=== PATIENT | female | born 1935 | race Caucasian/White ===

== ENCOUNTER → 2017-03-18 | Outpatient (CLI) | payer MEDICARE, BC ==
[2015-06-13 14:39] VITALS: BP 127/68
[~2017-03-18] MED LIST: ACET325T9 PO; ALBU2.5V5 NEB; ALPR0.254 PO; ALPR0.5T6 PO; AMLO5TAB2; ARFO15VI NEB; ASPI-630 PO; ATOR20TA PO; ATOR20TA58; BENA20TA2 PO; BUDE10.22 IH; DIPH25CA58 PO; DOCU-109 PO; FLUO15CR; FORM12CA IH; FURO40TA4; GUAR1PAC2 PO; HYDR12.53 PO; HYDR25CA PO; IOHEXOL 300 MG/ML 75 ML VIAL. IV ONE; LORA10TA3 PO; MELA3TAB2 PO; MULT-245 PO; NAPR220C4 PO; OXYB5TAB7 PO; POLY17PO5 PO; PRED5TAB PO; ZOLP10TA PO; ZOLP10TA4 PO; ZOLP5TAB PO
--- NOTE | 2017-03-18 09:08 | RAD ---
Examination: CT angiogram chest. History: History of elevated d-dimer Comparison: 07/29/2014 Technique: Axial CT angiographic images of the chest were performed with IV contrast. Coronal sagittal 3-D MIP reformats are performed. PQRS Compliance Statement: One or more of the following individualized dose reduction techniques were utilized for this examination: 1. Automated exposure control 2. Adjustment of the mA and/or kV according to patient size 3. Use of iterative reconstruction technique Findings: 2.6 cm hypodensity identified in the right lobe of thyroid gland grossly similar to prior exam. Mild cardiomegaly. Diffuse coronary artery calcifications. The caliber of the aorta grossly appears unremarkable. There is no evidence of filling defect identified in the main pulmonary arterial trunk and right and left main pulmonary arteries. No radiologically significant mediastinal lymphadenopathy identified. Mild atelectasis or scarring changes identified in the right middle lobe of the lung. No evidence of pleural effusion or pneumothorax. Multiple calcified granulomas identified in the liver and spleen. Moderate compression changes identified in the T11 vertebral body and mild compression change is identified in the T7 vertebral body are new compared to prior exam. Impression: 1. No evidence of acute pulmonary embolism. 2. New compression changes of T11, T7 vertebral bodies compared to prior exam of 2014.. Correlate for point tenderness. 3. 2.6 cm hypodensity identified in the right lobe of the thyroid gland grossly similar to prior exam 2014.
== END | disposition home or self-care (01) ==
LOC: CT 08:21
PROVIDERS: ATTEND Family Medicine
DX: I51.7 Cardiomegaly (principal); I25.10 Atherosclerotic heart disease of native coronary artery without angina pectoris; R79.1 Abnormal coagulation profile; K75.3 Granulomatous hepatitis, not elsewhere classified; Z87.891 Personal history of nicotine dependence
CPT/HCPCS: 71275; Q9967

== ENCOUNTER → 2018-01-04 | Outpatient (CLI) | payer MEDICARE, BC ==
[~2018-01-04] MED LIST changes: -AMLO5TAB2; +AMLO5TAB7; -BENA20TA2 PO; +BENA20TA4 PO; -IOHEXOL 300 MG/ML 75 ML VIAL. IV ONE
[2018-01-04 10:15] VITALS: BP 152/76
--- NOTE | 2018-01-04 10:16 | NUR ---
NSG NOTE; OUT PT BLADDER SCAN PT HERE TO ROOM 111 AT 0900 VIA AMB WITH CANE ACCOMP BY SELF VS: 97.9 ORAL; HR 69; RESP 18; O2 SAT 94% ON ROOM AIR; BP 152/76 PT STATES SHE NEEDS TO URINATE BLADDER SCAN SHOWS 143 ML URINE IN THE BLADDER PT VOIDED 75 ML URINE. BRIEF WAS DRY AT THIS TIME BLADDER SCAN SHOW 55 ML RESIDUAL URINE AFTER VOID. DR JOYA HERE AND INFORMED OF THESE RESULTS BY THE PATIENT AND ME I WILL FAX A COPY OF THIS NOTE TO DR JOYA'S OFFICE PT DISCHARGED HOME AT 0945
== END | disposition home or self-care (01) ==
LOC: OPINF 09:00
PROVIDERS: ATTEND Family Medicine
DX: N39.0 Urinary tract infection, site not specified (principal); Z87.891 Personal history of nicotine dependence
CPT/HCPCS: 51798

== ENCOUNTER → 2018-04-23 | Outpatient (CLI) | payer MEDICARE, BC ==
[2018-01-04 10:15] VITALS: BP 152/76
[~2018-04-23] MED LIST changes: -HYDR12.53 PO; +HYDR12.572 PO
--- NOTE | 2018-04-23 12:46 | RAD ---
EXAM: Maxillofacial bone CT without contrast. HISTORY: Sinusitis. TECHNIQUE: Computed tomographic images of the maximal facial bones were obtained without contrast. *One or more of the following individualized dose reduction techniques were utilized for this examination: 1. Automated exposure control. 2. Adjustment of the mA and/or kV according to patient size. 3. Use of iterative reconstruction technique. COMPARISON: None. FINDINGS: The paranasal sinuses are clear. The ostiomeatal units are patent. There is no significant nasal septal deviation. There is no sinus wall thickening or erosion. There is evidence of bilateral lens surgery. The mastoid air cells are clear. There is degenerative change involving the left mandibular condyle due to temporomandibular joint osteoarthritis. The visualized portions the brain demonstrate no mass effect or midline shift. There is no hydrocephalus. There is mild age-appropriate cerebral volume loss. No suspicious calvarial lesion is seen. IMPRESSION: 1. No evidence of acute or chronic sinusitis. 2. Left temporomandibular joint osteoarthritis. Electronically signed by: Addis Morrison MD (04/23/2018 12:42 PM) [place] [id number]
== END | disposition home or self-care (01) ==
LOC: CT 10:57
PROVIDERS: ATTEND Family Medicine
DX: J32.9 Chronic sinusitis, unspecified (principal); M26.69 Other specified disorders of temporomandibular joint
CPT/HCPCS: 70486

== ENCOUNTER 2018-06-11 17:45 | Inpatient (IN) | payer MEDICARE, BC ==
[~2018-06-11] VITALS: Ht 167.6 cm; Wt 66.3 kg
[~2018-06-11 17:45] MED LIST changes: +AMLO5TAB10; -AMLO5TAB7; -FLUO15CR; +FLUO15CR TOP
--- NOTE | 2018-06-11 17:48 | ED.ADGEN ---
Past History Past Medical History: Arthritis, Asthma, Bronchitis, CAD, COPD, Hypertension, Other Past Surgical History: Appendectomy, Hysterectomy, Knee Replacement, Pacemaker , Tonsillectomy, Other Alcohol Use: Occasionally Drug Use: None Adult General Chief Complaint Chief Complaint "I was at Dr. Beltran office...and they sent me here to get checked out.." HPI HPI Patient is a 83 year old female who presents with above hx and complaints of increased dyspea. Pt. has hx of COPD and CADZ with pacer. Has had previous TIA doesn't patient history of hypertension, high cholesterol, colon polyps, and Asthma. Pt. denies any productive cough but complains of increased dyspnea with ambulation. Patient does have an uncomfortable feeling in her lungs. Patient denies any change in meds. No history of travel or specific ill contacts. No history immunosuppression. Patient normally follows Dr. Beltran. Review of Systems Review of Systems Constitutional: Denies fever or chills [] Eyes: Denies change in visual acuity, redness, or eye pain [] HENT: Denies nasal congestion or sore throat [] Respiratory: Complaints of dyspnea and shortness of breath [] Cardiovascular: No additional information not addressed in HPI [] GI: Denies abdominal pain, nausea, vomiting, bloody stools or diarrhea [] : Denies dysuria or hematuria [] Musculoskeletal: Denies back pain or joint pain [] Integument: Denies rash or skin lesions [] Neurologic: Denies headache, focal weakness or sensory changes [] Endocrine: Denies polyuria or polydipsia [] All other systems were reviewed and found to be within normal limits, except as documented in this note. Family History Family History Noncontributory Current Medications Current Medications See nursing for home meds Allergies Allergies Allergies Coded Allergies Type Severity Reaction Last Updated Verified Penicillins Allergy Intermediate Itching 07/29/14 Yes Sulfa (Sulfonamide Antibiotics) Allergy Intermediate Unknown 07/29/14 Yes codeine Allergy Intermediate UNK 07/29/14 Yes diclofenac sodium Allergy Intermediate UNK 07/29/14 Yes latex Allergy Intermediate Rash 12/18/13 Yes Physical Exam Physical Exam Constitutional: Moderately acute distress, non-toxic appearance. [] HENT: Normocephalic, atraumatic, bilateral external ears normal, oropharynx moist, no oral exudates, nose normal. [] Eyes: PERRLA, EOMI, conjunctiva normal, no discharge. [] Neck: Normal range of motion, no tenderness, supple, no stridor. [] Cardiovascular:Heart rate regular rhythm, no murmur []PMI to Lt. Lungs & Thorax: Bilateral breath sounds clear apexes with scattered wheezes on auscultation []pacer. Scar Abdomen: Bowel sounds normal, soft, no tenderness, no masses, no pulsatile masses. [] Old surgery scars. Skin: Warm, dry, no erythema, no rash. [] Back: No tenderness, no CVA tenderness. [] Extremities: No tenderness, no cyanosis, no clubbing, ROM intact, no edema. [] No cording appreciated Neurologic: Alert and oriented X 3, normal motor function, normal sensory function, no focal deficits noted. [] Psychologic: Affect , judgement normal, mood normal. [] EKG EKG My interpretation of EKG shows a sinus rhythm at 69 bpm. There is a right axis deviation and right bundle branch block. No significant changes from EKG completed and Dr. Beltran's office at 1545 hrs.[] Radiology/Procedures Radiology/Procedures My interpretation of chest x-ray shows[] bilateral basal infiltrate/ atelectasis. Cardiomegaly. Does have a prominent pulmonary artery. CT of chest and US pending at time of admission. Course & Med Decision Making Course & Med Decision Making Pertinent Labs and Imaging studies reviewed. (See chart for details) Discussed presentation, testing and treatment plan with Dr. Beltran. Will admit for further evaluation and treatment. [] Final Impression Final Impression 1. Dyspnea 2. Elevated d-dimer- Hx. Prior Elevated D-dimers 3. History of COPD/bronchitis 4. History coronary artery disease with pacer[] 5 . Bilateral basilar interstitial changes 6. Pul. Hypertension?- Dragon Disclaimer Dragon Disclaimer This electronic medical record was generated, in whole or in part, using a voice recognition dictation system. Dragon Disclaimer This chart was dictated in whole or in part using Voice Recognition software in a busy, high-work load, and often noisy Emergency Department environment. It may contain unintended and wholly unrecognized errors or omissions. Discharge Summary Visit Information Final Diagnosis Problems Medical Problems: (1) Dyspnea Status: Acute Brief Hospital Course Allergies Allergies Coded Allergies Type Severity Reaction Last Updated Verified Penicillins Allergy Intermediate Itching 07/29/14 Yes Sulfa (Sulfonamide Antibiotics) Allergy Intermediate Unknown 07/29/14 Yes codeine Allergy Intermediate UNK 07/29/14 Yes diclofenac sodium Allergy Intermediate UNK 07/29/14 Yes latex Allergy Intermediate Rash 12/18/13 Yes Vital Signs Vital Signs Date Time Temp Pulse Resp B/P (MAP) Pulse Ox O2 Delivery O2 Flow Rate FiO2 06/11/18 22:23 97.8 95 18 109/71 (84) 95 Room Air Lab Results Laboratory Tests Test 06/11/18 18:15 06/11/18 18:55 White Blood Count 6.5 x10^3/uL (4.0-11.0) Red Blood Count 4.46 x10^6/uL (3.50-5.40) Hemoglobin 13.9 g/dL (12.0-15.5) Hematocrit 41.4 % (36.0-47.0) Mean Corpuscular Volume 93 fL (79-100) Mean Corpuscular Hemoglobin 31 pg (25-35) Mean Corpuscular Hemoglobin Concent 34 g/dL (31-37) Red Cell Distribution Width 14.2 % (11.5-14.5) Platelet Count 203 x10^3/uL (140-400) Neutrophils (%) (Auto) 67 % (31-73) Lymphocytes (%) (Auto) 19 % (24-48) Monocytes (%) (Auto) 10 % (0-9) Eosinophils (%) (Auto) 4 % (0-3) Basophils (%) (Auto) 1 % (0-3) Neutrophils # (Auto) 4.3 x10^3uL (1.8-7.7) Lymphocytes # (Auto) 1.2 x10^3/uL (1.0-4.8) Monocytes # (Auto) 0.6 x10^3/uL (0.0-1.1) Eosinophils # (Auto) 0.2 x10^3/uL (0.0-0.7) Basophils # (Auto) 0.0 x10^3/uL (0.0-0.2) Prothrombin Time 9.9 SEC (9.4-11.4) Prothromb Time International Ratio 1.0 (0.9-1.1) Activated Partial Thromboplast Time 26 SEC (23-33) D-Dimer (Lin) 1.25 mg/L (0.00-0.50) Sodium Level 140 mmol/L (136-145) Potassium Level 4.0 mmol/L (3.5-5.1) Chloride Level 102 mmol/L (98-107) Carbon Dioxide Level 32 mmol/L (21-32) Anion Gap 6 (6-14) Blood Urea Nitrogen 23 mg/dL (7-20) Creatinine 0.7 mg/dL (0.6-1.0) Estimated GFR (Cockcroft-Gault) 79.7 Glucose Level 77 mg/dL (70-99) Calcium Level 10.2 mg/dL (8.5-10.1) Magnesium Level 2.3 mg/dL (1.8-2.4) Total Bilirubin 0.4 mg/dL (0.2-1.0) Direct Bilirubin 0.1 mg/dL (0.0-0.2) Aspartate Amino Transf (AST/SGOT) 32 U/L (15-37) Alanine Aminotransferase (ALT/SGPT) 30 U/L (14-59) Alkaline Phosphatase 106 U/L (46-116) Creatine Kinase 161 U/L (26-192) Creatine Kinase MB (Mass) 4.5 ng/mL (0.0-3.6) Creatine Kinase MB Relative Index 2.8 % (0-4) Troponin I Quantitative 0.021 ng/mL (0-0.055) LG-Dlj-G-Type Natriuretic Peptide 276 pg/mL (0-449) Total Protein 7.5 g/dL (6.4-8.2) Albumin 4.0 g/dL (3.4-5.0) Lipase 244 U/L (73-393) Urine Collection Type Unknown Urine Color Yellow Urine Clarity Clear Urine pH 7.5 Urine Specific [place] 1.010 Urine Protein Neg (NEG-TRACE) Urine Glucose (UA) Neg mg/dL (NEG) Urine Ketones (Stick) Neg mg/dL (NEG) Urine Blood Neg (NEG) Urine Nitrite Neg (NEG) Urine Bilirubin Neg (NEG) Urine Urobilinogen Dipstick 0.2 mg/dL (0.2 mg/dL) Urine Leukocyte Esterase Neg (NEG) Urine RBC 0 /HPF (0-2) Urine WBC 0 /HPF (0-4) Urine Squamous Epithelial Cells Occ /LPF Urine Bacteria 0 /HPF (0-FEW) Brief Hospital Course Ms. Del Toro is a 83 old female who presented with dyspnea. Admitted Dr. Beltran Discharge Information Condition at Discharge: Improved, Stable Dischare Medications Current Medications Aspirin (Children'S Aspirin) 324 mg 1X ONCE PO Last administered on 06/11/18at 18:36; Start 06/11/18 at 18:00; Stop 06/11/18 at 18:01; Status DC Lactated Ringer's 1,000 ml @ 100 mls/hr Q10H IV Last administered on 06/11/18at 18:36; Start 06/11/18 at 18:00; Stop 06/12/18 at 03:59 Iohexol (Omnipaque 350 Mg/ml) 100 ml 1X ONCE IV Last administered on 06/11/18at 23:42; Start 06/11/18 at 20:30; Stop 06/11/18 at 20:31; Status DC Enoxaparin Sodium (Lovenox 60mg Syringe) 60 mg 1X ONCE SQ Last administered on 06/11/18at 20:58; Start 06/11/18 at 20:45; Stop 06/11/18 at 21:05; Status DC Ondansetron HCl (Zofran) 4 mg PRN Q4HRS PRN IV NAUSEA/VOMITING; Start 06/11/18 at 20:45; Stop 06/12/18 at 20:44 Albuterol/ Ipratropium (Duoneb) 3 ml RTQID NEB ; Start 06/12/18 at 08:00; Stop at 07:59 Methylprednisolone Sodium Succinate (SOLU-Medrol 125MG VIAL) 125 mg DAILY IV ; Start 06/12/18 at 09:00 Azithromycin (Zithromax) 500 mg 1X ONCE PO Last administered on 06/11/18at 21:04 ; Start 06/11/18 at 20:45; Stop 06/11/18 at 20:57; Status DC Azithromycin (Zithromax) 250 mg DAILY PO ; Start 06/12/18 at 09:00 Zolpidem Tartrate (Ambien) 5 mg QHS PO Last administered on 06/12/18at 00:02; Start 06/11/18 at 23:30 Zolpidem Tartrate (Ambien) 5 mg PRN QHS PRN PO INSOMNIA IF REPEAT NEEDED; Start 06/11/18 at 23:30 Active Scripts Active Reported Zolpidem Tartrate 10 Mg Tablet 10 Mg PO QHS Brovana (Arformoterol Tartrate) 15 Mcg/2 Ml Vial.neb 15 Mcg IH BID Lipitor (Atorvastatin Calcium) 20 Mg Tablet 20 Mg PO QHS indication: high lipids Last dose: last night next dose: tonight Alprazolam 0.5 Mg Tablet 1 Tab PO WEEKLY PRN Indication: anxiety Last dose: unknown next dose: anytime Melatonin 3 Mg Tablet 5 Mg PO PRN QHS PRN Indication: insomnia Last dose: unknown next dose: anytime at bedtime Foradil (Formoterol Fumarate) 12 Mcg Cap.w.dev 12 Mcg IH BID Indication: COPD Last dose: today at 9AM Next dose: tonight at bedtime Benadryl (Diphenhydramine Hcl) 25 Mg Capsule 1 Cap PO PRN QHS PRN Indication: allergies Next dose: anytime as needed Hydrochlorothiazide Capsule (Hydrochlorothiazide) 12.5 Mg Capsule 1 Cap PO DAILY Indication: blood pressure Last dose: this morning next dose: tomorrow at 9AM Miralax (Polyethylene Glycol 3350) 17 Gm Powd.pack 1 Packet PO DAILY Indication: constipation Last dose: today next dose: tomorrow Benefiber (Guar Gum) 1 Each Packet 1 Each PO PRN DAILY PRN Indication: stool softner Last dose: unknown next dose: anytime as needed for constipation Aspirin 81 Mg Tab.chew 2 Tab PO DAILY Indication: blood thinner Last dose: today at 9 Next dose: tomorrow at 9 Benazepril Hcl 20 Mg Tablet 0.5 Tab PO DAILY Indication: HTN last dose: today next dose: tomorrow in AM Symbicort 80-4.5 Mcg Inhaler (Budesonide/Formoterol Fumarate) 10.2 Gm Hfa.aer.ad 2 Puff IH PRN BID PRN Indication: COPD Last dose: unknown Next dose: anytime as needed Tylenol (Acetaminophen) 325 Mg Tablet 650 Mg PO Q6HRS PRN last dose this morning next dose as needed Next dose: anytime Multi Vitamin Daily (Multivitamin) 1 Each Tablet 1 Each PO Indication: vitamin Next dose: tomorrow at 9AM Vistaril (Hydroxyzine Pamoate) 25 Mg Capsule 1 Cap PO PRN TID PRN Indication: rash Next dose: anytime as needed Loratadine 10 Mg Tablet 1 Tab PO PRN DAILY PRN Indication: allergies Last dose: today Next dose: tomorrow at 9AM Fluocinonide 15 Gm Cream..g. PRN 3-4XDAILY PRN Indication: itching Next dose: anytime. Amlodipine Besylate 5 Mg Tablet DAILY Indication: blood pressure Last dose: this morning next dose tomorrow morning YUSEF RODRIGUEZ MD Jun 11, 2018 17:48
[2018-06-11] MEDS ORDERED: IV RINGERS SOLUTION,LACTATED 1,000 ML IV SCH (18:00)
[2018-06-11] MEDS ORDERED: ASPIRIN 81 MG TAB.CHEW PO ONE (18:00)
[2018-06-11 18:36] LABS: BASO % 1 % (0-3); EOS # 0.2 x10^3/uL (0.0-0.7); EOS % 4 % (0-3); HEMATOCRIT 41.4 % (36.0-47.0); HEMOGLOBIN 13.9 g/dL (12.0-15.5); LYMPH # 1.2 x10^3/uL (1.0-4.8); LYMPH % 19 % (24-48); MEAN CORPUSCULAR HEMOGLOBIN 31 pg (25-35); MEAN CORPUSCULAR HGB CONC 34 g/dL (31-37); MEAN CORPUSCULAR VOLUME 93 fL (79-100); MONO # 0.6 x10^3/uL (0.0-1.1); MONO % 10 % (0-9); NEUT # 4.3 x10^3uL (1.8-7.7); NEUT % 67 % (31-73); PLATELET COUNT 203 x10^3/uL (140-400); RED BLOOD COUNT 4.46 x10^6/uL (3.50-5.40); RED CELL DISTRIBUTION WIDTH 14.2 % (11.5-14.5); WHITE BLOOD COUNT 6.5 x10^3/uL (4.0-11.0)
--- NOTE | 2018-06-11 18:41 | EKG ---
[address] [address] Test Date: 2018-06-11 Test Time: 18:34:34 Pat Name: ADDY RUTH Department: Room: Gender: F Tapper Shank: : 1935 Requested By: YUSEF RODRIGUEZ Order Number: [id number] Reading MD: Andrei Snow MD Measurements Intervals [place] Rate: 69 P: 45 MO: 190 QRS: -156 QRSD: 128 T: 24 QT: 432 QTc: 465 Interpretive Statements SINUS RHYTHM ABNORMAL RIGHT SUPERIOR AXIS DEVIATION RIGHT BUNDLE BRANCH BLOCK Electronically Signed On 06-15-2018 10:14:25 COSTUMED CHARACTER by Andrei Snow MD
[2018-06-11 19:09] LABS: CALCIUM 10.2 mg/dL (8.5-10.1); CREATININE 0.7 mg/dL (0.6-1.0); DIRECT BILIRUBIN 0.1 mg/dL (0.0-0.2); GFR 79.7; MAGNESIUM 2.3 mg/dL (1.8-2.4); TOTAL BILIRUBIN 0.4 mg/dL (0.2-1.0); TOTAL PROTEIN 7.5 g/dL (6.4-8.2)
[2018-06-11 19:39] LABS: BACTERIA,URINE 0 /HPF (0-FEW); BILIRUBIN,URINE NEG (NEG); CLARITY,URINE CLEAR; COLOR,URINE YELLOW; GLUCOSE,URINE NEG (NEG); NITRITE,URINE NEG (NEG); RBC,URINE 0 /HPF (0-2); SQUAMOUS EPITHELIAL CELL,UR OCC /LPF; UROBILINOGEN,URINE 0.2 mg/dL (0.2 mg/dL); WBC,URINE 0 /HPF (0-4)
--- NOTE | 2018-06-11 20:27 | RAD ---
Examination: PORTABLE CHEST 1V History: short of air Comparison/Correlation: 03/18/2017 CTA of the chest Findings: Portable upright frontal view chest was obtained. Dual-lead left-sided pacemaker is present. Heart size is mildly enlarged. No pneumothorax. Borderline pulmonary vasculature congestion. Minimal linear atelectasis involving the retrocardiac region. No effusion or pneumothorax. Impression: Borderline congestive heart failure. Electronically signed by: Fernando Da Silva MD (06/11/2018 8:24 PM) [facility]
[2018-06-11] MEDS ORDERED: IOHEXOL 350 MG/ML 100 ML VIAL. IV ONE (20:30)
[2018-06-11] MEDS ORDERED: ONDANSETRON PF 4 MG/2 ML VIAL. IV PRN (20:45)
[2018-06-11] MEDS ORDERED: ENOXAPARIN ** NOTE DOSE ** SYRINGE SQ ONE (20:45)
[2018-06-11] MEDS ORDERED: AZITHROMYCIN 250 MG TABLET. PO ONE (20:45)
[2018-06-11 22:23] VITALS: BP 109/71
[2018-06-11] MEDS ORDERED: ARFO15VI IH (22:58)
[2018-06-11] MEDS ORDERED: ZOLP10TA4 PO (23:01)
[2018-06-11] MEDS ORDERED: ZOLPIDEM 5 MG TABLET. PO PRN (23:30)
[2018-06-12] MEDS: ZOLPIDEM 5 MG TABLET. PO SCH ×2 (00:02→20:48)
--- NOTE | 2018-06-12 01:39 | RAD ---
EXAM: CT chest with contrast - pulmonary embolus protocol CLINICAL HISTORY: Dyspnea COMPARISON: CT chest 03/18/2017. TECHNIQUE: CT of the chest following the administration of intravenous contrast during the pulmonary arterial phase. Axial, coronal and sagittal reformatted images were generated including MIP images. ---PQRS compliance statement - One or more of the following individualized dose reduction techniques were utilized for this study: 1. Automated exposure control 2. Adjustment of the mA and/or kV according to patient size 3. Use of iterative reconstruction technique--- FINDINGS: CHEST: Diagnostic quality: Adequate. Pulmonary emboli: None seen Right heart strain: None Pulmonary arteries: Pulmonary trunk prominence measuring 3.6 cm.. The heart is mildly enlarged. No pericardial effusion. Coronary artery calcifications are seen. No axillary lymphadenopathy. No mediastinal or hilar lymphadenopathy. No pleural effusion or pneumothorax. Linear opacities in the lower lobes likely scarring or atelectasis. Groundglass opacities are seen in the lower lobes with interstitial prominence. Visualized Upper abdomen: Calcified granulomas are seen within the spleen and liver. Bones: T7 and T11 vertebral body height loss is stable to 03/18/2017. IMPRESSION: 1. No evidence for acute pulmonary embolus. 2. Prominence of pulmonary arterial trunk may be seen with pulmonary arterial hypertension. 3. Groundglass opacities in the lower lobes bilaterally, possibly infectious or inflammatory in nature. In addition, given the mild cardiomegaly and interstitial prominence, findings may also represent changes of interstitial edema. Electronically signed by: Marvin Palencia MD (06/12/2018 1:36 AM) [facility]
[2018-06-12] MEDS: IPRATRPIUM/ALBUTEROL 0.5/2.5MG 3 ML NEBU. NEB SCH ×4 (04:30→20:31)
[2018-06-12] MEDS ORDERED: NON FORMULARY ITEM (Budesonide/Formoterol Fumarate (Symbicort 80-4.5 Mcg Inhaler) 2 PUFF) IH PRN (04:30)
[2018-06-12] MEDS ORDERED: ALPRAZOLAM PO PRN (04:30)
[2018-06-12] MEDS ORDERED: diphenhydrAMINE HCL 25 MG CAPSULE PO PRN (04:30)
[2018-06-12] MEDS ORDERED: ALBUTEROL SULFATE 2.5 MG/3 ML NEBU. NEB PRN (04:45)
[2018-06-12] MEDS ORDERED: hydrOXYzine PAMOATE 25 MG CAPSULE PO PRN (04:45)
[2018-06-12] MEDS ORDERED: MELATONIN 3 MG TABLET PO PRN (04:45)
[2018-06-12 06:18] VITALS: BP 134/71
[2018-06-12] MEDS ORDERED: ASPIRIN 81 MG TAB.CHEW PO SCH (08:00)
[2018-06-12] MEDS: hydroCHLOROthiazide 12.5 MG CAPSULE PO SCH (08:08)
[2018-06-12] MEDS: POLYETHYLENE GLYCOL 3350 17 GM PACKET. PO SCH (08:08)
[2018-06-12] MEDS: AZITHROMYCIN 250 MG TABLET. PO SCH (08:08)
[2018-06-12] MEDS: ACETAMINOPHEN 325 MG TABLET PO PRN (08:09)
[2018-06-12] MEDS ORDERED: CLON0.5T11 PO (08:16)
[2018-06-12] MEDS ORDERED: FORMOTEROL FUMARATE 12 MCG IH SCH (09:00)
[2018-06-12] MEDS ORDERED: methylPREDNISolone SOD SUCC PF 125 MG/2 ML VIAL. IV SCH (09:00)
[2018-06-12] MEDS ORDERED: NON FORMULARY ITEM (Arformoterol Tartrate (Brovana) 15 MCG) IH SCH (09:00)
[2018-06-12] MEDS ORDERED: CETIRIZINE HCL 10 MG TABLET PO PRN (09:00)
[2018-06-12] MEDS ORDERED: PSYLLIUM SEED (WITH SUGAR) PACKET. PO PRN (09:00)
[2018-06-12] MEDS ORDERED: LISINOPRIL 10 MG TABLET PO SCH (09:00)
[2018-06-12] MEDS: BUDESONIDE 0.5 MG/2 ML NEBU NEB SCH ×2 (09:10→20:31)
[2018-06-12 10:27] LABS: THYROID STIM HORMONE (TSH) 1.879 uIU/mL (0.358-3.740)
[2018-06-12 11:29] VITALS: BP 130/76
[2018-06-12] MEDS ORDERED: VIT1CAPS12 PO (11:31)
[2018-06-12] MEDS: LACTOBACILLUS RHAMNOSUS GG 1 CAPSULE. PO SCH ×2 (11:56→20:47)
[2018-06-12] MEDS: CITALOPRAM 10 MG TABLET. PO SCH (11:58)
[2018-06-12] MEDS: clonazePAM 0.5 MG TABLET PO SCH ×2 (11:58→20:47)
--- NOTE | 2018-06-12 12:29 | RAD ---
CT Head W/O Contrast: History: headache/dizziness every morning, hx of H/A Comparison: April 23, 2018 Axial images were obtained without contrast. There is moderate diffuse atrophy. There is no mass effect, extraaxial fluid collections or hydrocephalus. There is no focal loss of bran-white matter distinction to suggest acute ischemia, i.e. stroke. There is density in the distal left vertebral artery which is not seen previously. Impression: Possible acute clot in the distal left vertebral artery. No acute intracranial findings. PQRS Compliance Statement: One or more of the following individualized dose reduction techniques were utilized for this examination: 1. Automated exposure control 2. Adjustment of the mA and/or kV according to patient size 3. Use of iterative reconstruction technique Electronically signed by: Lee Joyner III, MD (06/12/2018 12:26 PM) [facility]
[2018-06-12] MEDS ORDERED: HYDR-2765 PO (13:47)
[2018-06-12] MEDS ORDERED: HYDROcodone/APAP 7.5/325MG 1 TAB TABLET PO PRN (14:00)
[2018-06-12 15:03] VITALS: BP 111/46
[2018-06-12] MEDS: MULTIVITAMIN I-VITE TABLET. PO SCH (17:34)
[2018-06-12 19:03] VITALS: BP 118/71
[2018-06-12] MEDS: methylPREDNISolone SOD SUCC PF 40 MG/ML VIAL. IV SCH (20:47)
[2018-06-12] MEDS: ATORVASTATIN CALCIUM 20 MG TABLET PO SCH (20:48)
[2018-06-12 23:00] VITALS: BP 105/65
--- NOTE | 2018-06-13 00:05 | PN ---
DATE: SUBJECTIVE: The patient came in with severe headache, neck and upper back pain. The patient's CT scan of the head demonstrated a possible acute clot of the distal left vertebral artery. No acute intracranial findings were noted, this might be what is given her headache. The patient was seen also down in the Emergency Room. CTA there did not demonstrate any PE; however, did show opacities in the lower lobes, possibly infectious. She was having trouble breathing and as a result of that, she was placed on some Solu-Medrol, aggressive pulmonary toilet and make further evaluation on her as indicated. Otherwise, today, the patient says she is feeling better, but she is still having severe pain in her neck and upper back area. PHYSICAL EXAMINATION: VITAL SIGNS: Blood pressure 110/40, respiratory rate 20, pulse 80, afebrile. GENERAL: The patient is alert and oriented x 3. Speech fluent, spontaneous appropriate. Cranial nerves 2-12 grossly intact, but tender to the left side of her neck. LUNGS: Diminished, but clear. CARDIOVASCULAR: Regular sinus rhythm, 1/6 systolic ejection murmur. ABDOMEN: Soft, nontender. IMPRESSION: Therefore acute clot to the left vertebral artery, possible pneumonia of unspecified etiology, community acquired. The patient continued on IV antibiotic therapy. She is also on aspirin and we will make further evaluation on her as indicated. We will get Neurology consult to see if they can consult further input on this patient's acute clot to her left vertebral artery, headache and pneumonia of unspecified etiology, dyspnea. PLAN: As above. VITO JOYA MD DR: CARITO/yeimy JOB#: [id number] / [id number]
[2018-06-13] MEDS: ACETAMINOPHEN 325 MG TABLET PO PRN ×2 (02:42→17:46)
[2018-06-13] MEDS: IPRATRPIUM/ALBUTEROL 0.5/2.5MG 3 ML NEBU. NEB SCH ×4 (05:55→21:05)
[2018-06-13 06:10] VITALS: BP 123/71
[2018-06-13] MEDS: clonazePAM 0.5 MG TABLET PO SCH ×2 (07:53→20:45)
[2018-06-13] MEDS: LACTOBACILLUS RHAMNOSUS GG 1 CAPSULE. PO SCH ×2 (07:53→20:45)
[2018-06-13] MEDS: methylPREDNISolone SOD SUCC PF 40 MG/ML VIAL. IV SCH ×2 (07:53→20:45)
[2018-06-13] MEDS: hydroCHLOROthiazide 12.5 MG CAPSULE PO SCH (07:53)
[2018-06-13] MEDS: AZITHROMYCIN 250 MG TABLET. PO SCH (07:53)
[2018-06-13] MEDS: ASPIRIN 81 MG TAB.CHEW PO SCH (07:54)
[2018-06-13] MEDS: MULTIVITAMIN I-VITE TABLET. PO SCH ×2 (07:54→17:41)
[2018-06-13] MEDS: POLYETHYLENE GLYCOL 3350 17 GM PACKET. PO SCH (07:54)
[2018-06-13] MEDS: CITALOPRAM 10 MG TABLET. PO SCH (07:54)
[2018-06-13 08:37] LABS: BASO % 0 % (0-3); EOS % 0 % (0-3); HEMATOCRIT 37.1 % (36.0-47.0); HEMOGLOBIN 12.6 g/dL (12.0-15.5); LYMPH # 0.7 x10^3/uL (1.0-4.8); LYMPH % 9 % (24-48); MEAN CORPUSCULAR HEMOGLOBIN 31 pg (25-35); MEAN CORPUSCULAR HGB CONC 34 g/dL (31-37); MEAN CORPUSCULAR VOLUME 92 fL (79-100); MONO # 0.7 x10^3/uL (0.0-1.1); MONO % 9 % (0-9); NEUT # 6.4 x10^3uL (1.8-7.7); NEUT % 81 % (31-73); PLATELET COUNT 196 x10^3/uL (140-400); RED BLOOD COUNT 4.02 x10^6/uL (3.50-5.40); WHITE BLOOD COUNT 7.8 x10^3/uL (4.0-11.0)
[2018-06-13] MEDS: BUDESONIDE 0.5 MG/2 ML NEBU NEB SCH ×2 (10:08→21:05)
[2018-06-13 11:26] VITALS: BP 149/71
[2018-06-13] MEDS ORDERED: IOHEXOL 350 MG/ML 100 ML VIAL. IV ONE (14:30)
--- NOTE | 2018-06-13 15:28 | RAD ---
Examination: CT angiography head and neck with IV contrast HISTORY: History of head and neck pain and dizziness COMPARISON: None available TECHNIQUE: Axial CT angiographic images of the head and neck were performed with IV contrast. Coronal and sagittal 3-D MIP reformats are performed Exposure: One or more of the following individualized dose reduction techniques were utilized for this examination: 1. Automated exposure control 2. Adjustment of the mA and/or kV according to patient size 3. Use of iterative reconstruction technique. Stenosis calculations for CT, MR, and conventional angiography are based upon measurements of the distal ICA diameter in accordance with the NASCET methodology. Stenosis calculations for carotid ultrasound studies are derived from validated velocity criteria which are known to correlate with the NASCET methodology. FINDINGS: The origin of the great vessels from the arch of the aorta grossly appears unremarkable. Moderate atherosclerotic calcifications identified in the right common carotid artery. The bilateral internal carotid arteries are patent. The cavernous and the petrous portions of the internal carotid arteries are patent. The bilateral middle cerebral arteries, anterior cerebral arteries appear patent. The basilar arteries are patent. The bilateral vertebral arteries are patent. There is moderate to severe stenosis of the proximal right posterior cerebral artery. Mild atherosclerotic calcifications is identified in the bilateral vertebral arteries. The apical lungs are clear. Severe degenerative changes cervical spine. IMPRESSION: 1. No evidence of occlusion or obvious aneurysmal changes identified. 2. 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 Electronically signed by: Keith Culp MD (06/13/2018 3:25 PM) [facility]
[2018-06-13 16:19] VITALS: BP 134/75
[2018-06-13 19:43] VITALS: BP 161/80
[2018-06-13] MEDS: ZOLPIDEM 5 MG TABLET. PO SCH (20:45)
[2018-06-13] MEDS: ATORVASTATIN CALCIUM 20 MG TABLET PO SCH (20:45)
[2018-06-13 23:21] VITALS: BP 131/74
--- NOTE | 2018-06-14 00:05 | PN ---
DATE: SUBJECTIVE: An 83-year-old female in with severe headaches, generalized weakness and alike. Her CT scan did show possibility of an acute infarct of her left vertebral artery. As a result of that Dr. Padilla has been evaluating the patient and making timely suggestions on that. The patient had a positive D-dimer, but her CTA did not demonstrate any acute pulmonary embolus. She may have some pulmonary hypertension and she may have a pneumonic process for which she is receiving some steroids as well as some IV antibiotic therapy as well, seems to be doing better overall. We will continue her on the aggressive pulmonary toilet and antibiotic therapy. PHYSICAL EXAMINATION: GENERAL: The patient is alert and oriented. LUNGS: Diminished, still complaining of severe pain in her neck and upper back area. Decreased breath sounds. CARDIOVASCULAR: Regular sinus rhythm. ABDOMEN: Soft, nontender. EXTREMITIES: No clubbing, cyanosis or edema. NEUROLOGIC: Stable. We will wait for Dr. Padilla's timely input and make further evaluation on her as indicated. IMPRESSION: Pneumonia of unspecified etiology, community acquired; blood clot in the vascular system of the left vertebral artery, generalized weakness, failure to thrive, severe headache, and dyspnea. VITO JOYA MD DR: CARITO/yeimy JOB#: [id number] / [id number]
--- NOTE | 2018-06-14 04:50 | CONS ---
DATE OF CONSULTATION: 06/11/2018 NEUROLOGY CONSULTATION REFERRING PHYSICIAN: Dr. Beltran REASON FOR CONSULTATION: Severe headaches and brain clot. HISTORY OF PRESENT ILLNESS: This is an 83-year-old right-handed female who was admitted through the Emergency Room on 06/11/2018 after she presented with recurrent occipital headaches without nausea, vomiting, photophobia, or phonophobia. She has recently noticed increased shortness of breath on exertion. Currently, the patient denies chest pain or palpitation. Initial nonenhanced head CT scan revealed possible acute clot in the distal left vertebral artery, otherwise no intracranial acute findings. CT angio of the head and neck revealed no evidence of occlusion or aneurysms, otherwise unremarkable. 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 PAST MEDICAL HISTORY: Significant for TIA, hypertension, hyperlipidemia, secondhand COPD, sleep apnea, urinary incontinence, osteoarthritis, depression, and anxiety. PAST SURGICAL HISTORY: Significant for pacemaker placement, bilateral total knee replacement, tonsillectomy, cataract surgery, hysterectomy, abdominal surgery for colon cancer, and carpal tunnel release. SOCIAL HISTORY: The patient denies smoking, alcohol drinking, or illicit drug use. FAMILY HISTORY: Father had diabetes mellitus. Mother had coronary artery disease. REVIEW OF SYSTEMS: A 10-point review of systems was performed as mentioned above in history of present illness. CURRENT HOME MEDICATIONS: Prednisone, Lipitor, multivitamins, hydrocodone/acetaminophen, Celexa, clonazepam, MiraLax, Metamucil, ____, Pulmicort inhaler, albuterol nebulizer, ____ and Ambien. ALLERGIES: SULFA DRUGS, PENICILLIN, CODEINE, DICLOFENAC, AND LATEX. PHYSICAL EXAMINATION: GENERAL: Well-developed, well-nourished female, not in acute distress. VITAL SIGNS: She weighs 146 pounds. Blood pressure 123/71, respiratory rate 20, pulse is 79 and regular, temperature 97.8, oxygen saturation 94% on room air. HEENT: Normocephalic, atraumatic, otherwise unremarkable. NECK: Supple. Negative for carotid bruit, lymphadenopathy, JVD, or thyromegaly. LUNGS: With diminished breath sounds, but no wheezing or rales. CARDIOVASCULAR: Regular rate and rhythm, normal S1, S2. There is a 2/6 systolic murmur without radiation to the neck. ABDOMEN: Soft. Bowel sounds positive. EXTREMITIES: Negative for cyanosis, clubbing, or pitting edema. NEUROLOGICAL: Mental Status: The patient is alert and oriented x 3. Speech is fluent. There is no language dysfunction. Memory, judgment, and abstract thinking are normal for her age. The patient denies hallucination or delusion. CRANIAL NERVES: Visual casey are full. The pupils are reactive to light and accommodation. The extraocular movements are intact. There is no nystagmus. There is no facial motor or sensory deficit. Hearing is intact bilaterally. The palate is elevated symmetrically. Sternocleidomastoid muscles are powerful bilaterally. The patient shrugs her shoulders symmetrically, protrudes her tongue in the midline without fasciculation or atrophy. MOTOR: No focal muscle bulk was seen. The tone is normal. The strength is 4/5 throughout. SENSORY: Examination revealed normal pinprick and light touch senses throughout. Deep tendon reflexes are asymmetric and hypoactive with absent Achilles responses. Gait: The patient uses a cane for ambulation and walker for long distance ambulation. LABORATORY DATA: CBC revealed white blood cells of 7800, hemoglobin 12.6, hematocrit 37.1, platelet count 196,000. Chemistry revealed sodium of 140, potassium 4, chloride 102, CO2 at 32, BUN 23, creatinine 0.7, glucose 77. Liver enzymes are normal. Troponin level is normal. Lipid profile revealed normal triglyceride and cholesterol with normal LDL and high HDL with normal cholesterol. Urinalysis is negative for urinary tract infection. DIAGNOSTIC DATA: Head/neck CT angio as described above in the history of present illness. CT scan as mentioned above in history of present illness and CT angio of the lungs reveals no evidence of pulmonary embolism and positive for pulmonary hypertension. IMPRESSION: 1. Occipital headaches, probably referral headache from severe degenerative disk of the cervical spine. 2. 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 3. Multiple medical problems, include chronic obstructive pulmonary disease, asthma, arthritis, hypertension, hyperlipidemia, gastroesophageal reflux disease. RECOMMENDATIONS: 1. Continue with aspirin 81 mg. As the patient stated when she takes a higher dose of aspirin, she will have hematomas of the upper extremities. 2. Treat the exacerbation of COPD and possible pneumonia. M Deena SHEPHERD MD DR: DEBORA/yeimy JOB#: [id number] / [id number]
[2018-06-14] MEDS: IPRATRPIUM/ALBUTEROL 0.5/2.5MG 3 ML NEBU. NEB SCH ×2 (05:30→10:56)
[2018-06-14 06:10] VITALS: BP 149/72
[2018-06-14] MEDS: POLYETHYLENE GLYCOL 3350 17 GM PACKET. PO SCH (08:12)
[2018-06-14] MEDS: AZITHROMYCIN 250 MG TABLET. PO SCH (08:13)
[2018-06-14] MEDS: MULTIVITAMIN I-VITE TABLET. PO SCH (08:13)
[2018-06-14] MEDS: hydroCHLOROthiazide 12.5 MG CAPSULE PO SCH (08:13)
[2018-06-14] MEDS: clonazePAM 0.5 MG TABLET PO SCH (08:14)
[2018-06-14] MEDS: ASPIRIN 81 MG TAB.CHEW PO SCH (08:14)
[2018-06-14] MEDS: LACTOBACILLUS RHAMNOSUS GG 1 CAPSULE. PO SCH (08:14)
[2018-06-14] MEDS: CITALOPRAM 10 MG TABLET. PO SCH (08:14)
[2018-06-14] MEDS: methylPREDNISolone SOD SUCC PF 40 MG/ML VIAL. IV SCH (08:19)
[2018-06-14] MEDS ORDERED: predniSONE 10 MG TABLET PO SCH (09:00)
[2018-06-14 10:54] VITALS: BP 172/81
[2018-06-14] MEDS: BUDESONIDE 0.5 MG/2 ML NEBU NEB SCH (10:56)
--- NOTE | 2018-06-14 11:30 | DS ---
DATE OF DISCHARGE: 06/11/2018 HOSPITAL COURSE: The patient is an 83-year-old female came in with increased shortness of breath and marked dyspnea, weakness. The patient was also noted to have some type of inflammatory, possible infectious process in her lungs. She was given aggressive pulmonary toilet. PE was negative. 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 The patient made excellent progress during the rest of her hospitalization. She was discharged home. She will be followed up as an outpatient and physical therapy for her neck. IMPRESSION: Pneumonia of unspecified etiology, referred headache from degenerative disease of the cervical spine, acute exacerbation of chronic obstructive pulmonary disease with hypoxia, pneumonia of unspecified etiology. DISCHARGE INSTRUCTIONS: The patient will be monitored carefully, make further evaluation on her as indicated as an outpatient. See MRAD. Decreased activity, physical therapy for her cervical degenerative arthritis and some slight curvature to the neck itself. VITO JOYA MD DR: CARITO/yeimy JOB#: [id number] / [id number]
[2018-06-14] MEDS ORDERED: IPRA3AMP29 NEB (12:12)
[2018-06-14] MEDS ORDERED: AZIT250T6 PO (12:12)
[2018-06-14] MEDS ORDERED: ZOLP5TAB PO (12:12)
[2018-06-14] MEDS ORDERED: PRED-220 PO (12:12)
[2018-06-14] MEDS ORDERED: CITA10TA8 PO (12:12)
--- NOTE | 2018-06-14 12:24 | PN ---
DATE: SUBJECTIVE: The patient denies any new medical or neurological complaints. She stated her headache is better and her breathing is better. OBJECTIVE: GENERAL: Well-developed and well-nourished female, not in acute distress. VITAL SIGNS: Blood pressure 149/72, respiratory rate 20, pulse is 82 and regular, temperature is 97.7, and oxygen saturation 94% on room air. HEENT: Normocephalic and atraumatic, otherwise unremarkable. NECK: Supple. Negative for carotid bruit, lymphadenopathy or thyromegaly. LUNGS: Clear to A and P with mild diminished breath sounds. No wheezing or rales. CARDIOVASCULAR: Regular rate and rhythm, normal S1, S2. There is a 2/6 systolic murmur without radiation to the neck. ABDOMEN: Soft. Bowel sounds positive. EXTREMITIES: Negative for cyanosis, clubbing or pitting edema, but has multiple hematomas over both upper extremities secondary to aspirin use. NEUROLOGICAL EXAM: Mental Status: The patient is alert and oriented x3. Speech is fluent. There is no language dysfunction. Cranial nerves are intact. Motor Examination: No focal muscle bulk was seen. The tone is normal. The strength is 5/5 throughout. Sensory examination revealed normal pinprick, light touch, vibratory and position senses. Deep tendon reflexes were symmetric and hypoactive with absent Achilles responses. Gait: The stance is steady. The patient uses a walker for ambulation. 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 IMPRESSION: 1. Severe occipital headache - improved. Severe cervical spine degenerative disk disease may have contributed to the current symptoms. Additionally to underlying tension headaches. 2. Moderate stenosis of the proximal right vertebral artery without focal neurological deficit. 3. Multiple medical problems include chronic obstructive pulmonary disease and possible exacerbation versus pneumonia, hypertension, hyperlipidemia, gastroesophageal reflux disease and arthritis. RECOMMENDATIONS: Continue with current management and physical therapy evaluation. M Deena SHEPHERD MD DR: DEBORA/yeimy JOB#: [id number] / [id number]
== END 2018-06-14 14:37 | disposition home or self-care (01) | DRG 190 ==
LOC: ER 17:45 → UNDOADMIN 21:00 → 1 SOUTH 21:00 → ER 22:05
PROVIDERS: ADMIT Family Medicine; ATTEND Family Medicine
DX: J44.1 Chronic obstructive pulmonary disease with (acute) exacerbation (principal); J18.9 Pneumonia, unspecified organism; R65.10 Systemic inflammatory response syndrome (SIRS) of non-infectious origin without acute organ dysfunction; J44.0 Chronic obstructive pulmonary disease with (acute) lower respiratory infection; R62.7 Adult failure to thrive; F32.9 Major depressive disorder, single episode, unspecified; F41.9 Anxiety disorder, unspecified; E78.5 Hyperlipidemia, unspecified; G44.209 Tension-type headache, unspecified, not intractable; G47.30 Sleep apnea, unspecified; I10 Essential (primary) hypertension; I25.10 Atherosclerotic heart disease of native coronary artery without angina pectoris; Z96.653 Presence of artificial knee joint, bilateral; I65.01 Occlusion and stenosis of right vertebral artery; I66.21 Occlusion and stenosis of right posterior cerebral artery; M19.90 Unspecified osteoarthritis, unspecified site; K21.9 Gastro-esophageal reflux disease without esophagitis; M50.30 Other cervical disc degeneration, unspecified cervical region; Z82.49 Family history of ischemic heart disease and other diseases of the circulatory system; Z79.899 Other long term (current) drug therapy; Z90.49 Acquired absence of other specified parts of digestive tract; Z83.3 Family history of diabetes mellitus; Z85.038 Personal history of other malignant neoplasm of large intestine; Z86.73 Personal history of transient ischemic attack (TIA), and cerebral infarction without residual deficits; Z95.0 Presence of cardiac pacemaker; Z90.710 Acquired absence of both cervix and uterus
CPT/HCPCS: 36415; 70450; 70496; 70498; 71045; 71275; 80048; 80061; 80076; 81001; 82553; 83690; 83735; 83880; 84145; 84443; 84484; 85025; 85379; 85610; 85651; 85730; 86140; 93005; 94640; 96360; 96361; 96372; J0456; J0696; J1650; J2920; J2930; J7120; J7512; J7620; J7626; Q0177; Q9967; 99285-25

== ENCOUNTER → 2018-10-26 | Outpatient (CLI) | payer MEDICARE, BC ==
[~2018-10-26] MED LIST changes: +ARFO15VI IH; +AZIT250T6 PO; +CITA10TA8 PO; +CLON0.5T11 PO; +HYDR-2765 PO; +IPRA3AMP29 NEB; +PRED-220 PO; +VIT1CAPS12 PO
[2018-10-26 12:37] LABS: BGAS PH 7.42 (7.35-7.45)
== END | disposition home or self-care (01) ==
LOC: LAB 11:49
PROVIDERS: ATTEND Family Medicine
DX: J44.9 Chronic obstructive pulmonary disease, unspecified (principal)
CPT/HCPCS: 36415; 36600; 82803

== ENCOUNTER → 2019-06-01 | Outpatient (CLI) | payer MEDICARE, BC ==
[~2019-06-01] MED LIST changes: -CLON0.5T11 PO; +CLON0.5T4 PO; -MELA3TAB2 PO; +MELA3TAB56 PO; +METH4TAB2 PO; +OXYB5TAB10 PO; -OXYB5TAB7 PO; +TRAM50TA PO
--- NOTE | 2019-06-01 11:26 | RAD ---
Examination: CT CHEST WO CONTRAST History: Pleurisy Comparison/Correlation: CTA chest 06/11/2018 Findings: Axial images of the chest were obtained without contrast. Sagittal and coronal reformatted images were provided. Dual-lead left-sided pacemaker is present. Small amount of fluid in the superior sagittal pericardial recesses are present. Bilateral calcifications are present. No infiltrate or pleural effusion. Minimal linear atelectasis at the lower lung casey are present. Calcified right hilar lymph nodes are present. Right middle lobe atelectasis is present. No pulmonary nodule or mass lesion. Kyphosis of the thoracic spine. T7 and T11 vertebral body compression deformities are present. Superior L2-3 disc space narrowing with endplate sclerosis noted. Spinal canal stenosis at this level is present. Calcified granulomata involve the liver and spleen. Impression: Complete right middle lobe atelectasis is evident in the interval. Follow-up to resolution recommended. T7 and T11 compression deformity. PQRS Compliance Statement: One or more of the following individualized dose reduction techniques were utilized for this examination: 1. Automated exposure control 2. Adjustment of the mA and/or kV according to patient size 3. Use of iterative reconstruction technique Electronically signed by: Fernando Da Silva MD (06/01/2019 11:22 AM) [facility]
== END | disposition home or self-care (01) ==
LOC: CT 10:44
PROVIDERS: ATTEND Family Medicine
DX: J98.11 Atelectasis (principal); J98.4 Other disorders of lung; M40.294 Other kyphosis, thoracic region; M43.8X4 Other specified deforming dorsopathies, thoracic region; M48.061 Spinal stenosis, lumbar region without neurogenic claudication; J84.10 Pulmonary fibrosis, unspecified; Z95.0 Presence of cardiac pacemaker
CPT/HCPCS: 71250

== ENCOUNTER → 2019-06-03 | Outpatient (CLI) | payer MEDICARE, BC ==
--- NOTE | 2019-06-03 18:43 | RAD ---
Examination: HAND RIGHT 3V, WRIST 3V RIGHT History: Pain Comparison/Correlation: None Findings: 3 view examination of the right hand and 3 view exam the right wrist were performed. Osteopenia is present. Degenerative narrowing of the second metacarpophalangeal joint is moderate. No displaced fracture or bone obstruction. First carpometacarpal joint degenerative remodeling is present. Impression: Osteopenia. No acute process. Consider further imaging with MRI if occult process is a persistent concern. Electronically signed by: Fernando Da Silva MD (06/03/2019 6:40 PM) [id number]
== END | disposition home or self-care (01) ==
LOC: DXRAD 10:27
PROVIDERS: ATTEND Family Medicine
DX: M25.831 Other specified joint disorders, right wrist (principal); M85.841 Other specified disorders of bone density and structure, right hand
CPT/HCPCS: 73110; 73130

== ENCOUNTER 2019-06-04 13:22 | Emergency (ER) | payer MEDICARE, BC ==
[~2019-06-04] VITALS: Ht 167.6 cm; Wt 65.5 kg
[~2019-06-04 13:22] MED LIST changes: -METH4TAB2 PO; -TRAM50TA PO
[2019-06-04 13:25] VITALS: BP 155/89
[2019-06-04] MEDS ORDERED: HYDROcodone/APAP 5/325MG 1 TAB TABLET PO ONE (14:15)
[2019-06-04 14:58] LABS: BASO # 0.1 x10^3/uL (0.0-0.2); BASO % 1 % (0-3); EOS # 0.2 x10^3/uL (0.0-0.7); EOS % 3 % (0-3); HEMATOCRIT 37.8 % (36.0-47.0); HEMOGLOBIN 12.6 g/dL (12.0-15.5); LYMPH # 1.2 x10^3/uL (1.0-4.8); LYMPH % 16 % (24-48); MEAN CORPUSCULAR HEMOGLOBIN 31 pg (25-35); MEAN CORPUSCULAR HGB CONC 33 g/dL (31-37); MEAN CORPUSCULAR VOLUME 94 fL (79-100); MONO # 1.1 x10^3/uL (0.0-1.1); MONO % 14 % (0-9); NEUT # 5.2 x10^3uL (1.8-7.7); NEUT % 67 % (31-73); PLATELET COUNT 222 x10^3/uL (140-400); RED BLOOD COUNT 4.03 x10^6/uL (3.50-5.40); RED CELL DISTRIBUTION WIDTH 13.9 % (11.5-14.5); WHITE BLOOD COUNT 7.8 x10^3/uL (4.0-11.0)
[2019-06-04 15:09] LABS: URIC ACID 3.5 mg/dL (2.6-6.0)
--- NOTE | 2019-06-04 15:14 | RAD ---
EXAM: CHEST 2 VIEWS. HISTORY: Cough. COMPARISON: 06/11/2018. 06/01/2019. FINDINGS: Frontal and lateral views of the chest are obtained. A left-sided pacemaker has its leads in the right atrium and right ventricle. Right middle lobe atelectasis is unchanged since recent CT. There are no confluent infiltrates. There is no pneumothorax or pleural effusion. The heart is moderately enlarged. The aorta is calcified and tortuous. IMPRESSION: 1. Stable right middle lobe collapse. 2. Moderate cardiomegaly. Electronically signed by: Kelsie Paniagua MD (06/04/2019 3:11 PM) [id number]
[2019-06-04] MEDS ORDERED: METH4TAB2 PO (15:27)
[2019-06-04] MEDS ORDERED: TRAM50TA PO (15:27)
--- NOTE | 2019-06-04 15:27 | PHYS DOC ---
Past History Past Medical History: Arthritis, Asthma, Bronchitis, CAD, COPD, Hypertension, Other Past Surgical History: Appendectomy, Hysterectomy, Knee Replacement, Pacemaker, Tonsillectomy, Other Alcohol Use: Occasionally Drug Use: None Adult General Chief Complaint Chief Complaint: HAND PROBLEM [facility] HPI Patient is a 83-year-old female who presents with complaint of right hand pain and swelling for the last few days. Patient was seen by Dr. Beltran and given prescription but she states the symptoms are progressively worsening. She states that several days ago she had been trying to open a pickle jar for her daughter and states that she was hitting it with a knife and then used all of her strength to try and open the jar and since then has had this pain and swelling. She denies any other injuries. Patient rates pain as moderate. Patient also indicates that she has had a cough and has been taking antibiotics for the cough. She states that she wants to make sure that this is not developing into a pneumonia and would like a chest x-ray.[] Review of Systems Review of Systems Constitutional: Denies fever or chills [] Respiratory: Reports cough without shortness of breath [] Cardiovascular: No additional information not addressed in HPI [] Musculoskeletal: Complains of right hand pain [] Integument: Denies rash or skin lesions [] Current Medications Current Medications Current Medications Medications (Trade) Dose Ordered Sig/Vviiana Start Time Stop Time Status Last Admin Dose Admin Acetaminophen/ Hydrocodone Bitart (Lortab 5/325) 1 tab 1X ONCE 06/04/19 14:15 06/04/19 14:16 DC 06/04/19 14:44 1 TAB Allergies Allergies Allergies Coded Allergies Type Severity Reaction Last Updated Verified Penicillins Allergy Intermediate Itching 06/13/18 Yes Sulfa (Sulfonamide Antibiotics) Allergy Intermediate Unknown 07/29/14 Yes codeine Allergy Intermediate UNK 07/29/14 Yes diclofenac sodium Allergy Intermediate UNK 07/29/14 Yes latex Allergy Intermediate Rash 12/18/13 Yes Physical Exam Physical Exam Constitutional: Well developed, well nourished, no acute distress, non-toxic appearance. [] Neck: Normal range of motion, no tenderness, supple, no stridor. [] Cardiovascular: Regular rate and rhythm[] Lungs & Thorax: Bilateral breath sounds clear to auscultation [] Skin: Warm, dry, no erythema, no rash. [] Extremities: Examination of right hand and wrist demonstrates soft tissue swelling on the dorsal aspect with tenderness and mild erythema and warmth. [] Current Patient Data Vital Signs Vital Signs Date Time Temp Pulse Resp B/P (MAP) Pulse Ox O2 Delivery O2 Flow Rate FiO2 06/04/19 14:44 18 96 Room Air 06/04/19 13:25 98.3 70 155/89 (111) Lab Results Laboratory Tests Test 06/04/19 14:42 White Blood Count 7.8 x10^3/uL (4.0-11.0) Red Blood Count 4.03 x10^6/uL (3.50-5.40) Hemoglobin 12.6 g/dL (12.0-15.5) Hematocrit 37.8 % (36.0-47.0) Mean Corpuscular Volume 94 fL (79-100) Mean Corpuscular Hemoglobin 31 pg (25-35) Mean Corpuscular Hemoglobin Concent 33 g/dL (31-37) Red Cell Distribution Width 13.9 % (11.5-14.5) Platelet Count 222 x10^3/uL (140-400) Neutrophils (%) (Auto) 67 % (31-73) Lymphocytes (%) (Auto) 16 % (24-48) L Monocytes (%) (Auto) 14 % (0-9) H Eosinophils (%) (Auto) 3 % (0-3) Basophils (%) (Auto) 1 % (0-3) Neutrophils # (Auto) 5.2 x10^3uL (1.8-7.7) Lymphocytes # (Auto) 1.2 x10^3/uL (1.0-4.8) Monocytes # (Auto) 1.1 x10^3/uL (0.0-1.1) Eosinophils # (Auto) 0.2 x10^3/uL (0.0-0.7) Basophils # (Auto) 0.1 x10^3/uL (0.0-0.2) Uric Acid 3.5 mg/dL (2.6-6.0) C-Reactive Protein 42.0 mg/L (0-3.3) H EKG EKG [] Radiology/Procedures Radiology/Procedures [] Impressions: PROCEDURE: CHEST PA & LATERAL EXAM: CHEST 2 VIEWS. HISTORY: Cough. COMPARISON: 06/11/2018. 06/01/2019. FINDINGS: Frontal and lateral views of the chest are obtained. A left-sided pacemaker has its leads in the right atrium and right ventricle. Right middle lobe atelectasis is unchanged since recent CT. There are no confluent infiltrates. There is no pneumothorax or pleural effusion. The heart is moderately enlarged. The aorta is calcified and tortuous. IMPRESSION: 1. Stable right middle lobe collapse. 2. Moderate cardiomegaly. Electronically signed by: Kelsie Paniagua MD (06/04/2019 3:11 PM) [facility] Course & Med Decision Making Course & Med Decision Making Pertinent Labs and Imaging studies reviewed. (See chart for details) [] Dragon Disclaimer Dragon Disclaimer This electronic medical record was generated, in whole or in part, using a voice recognition dictation system. Departure Departure: Impression: Primary Impression: Hand tendinitis Disposition: 01 HOME, SELF-CARE Condition: STABLE Referrals: VITO BELTRAN MD (PCP) Patient Instructions: Tendinitis Scripts Tramadol Hcl (TRAMADOL HCL) 50 Mg Tablet 50 MG PO PRN Q6HRS PRN for PAIN, #12 TAB Prov: DIANA OLMEDO Jr. DO 06/04/19 Methylprednisolone (MEDROL) 4 Mg Tab.ds.pk 1 PKG PO UD for inflammation, #1 PKG Prov: DIANA OLMEDO Jr. DO 06/04/19 DIANA OLMEDO Jr. DO Jun 04, 2019 15:27
== END 2019-06-04 15:40 | disposition home or self-care (01) ==
LOC: ER 13:22
DX: M77.9 Enthesopathy, unspecified (principal); R05 Cough; M19.90 Unspecified osteoarthritis, unspecified site; I25.10 Atherosclerotic heart disease of native coronary artery without angina pectoris; J44.9 Chronic obstructive pulmonary disease, unspecified; I10 Essential (primary) hypertension; Z95.0 Presence of cardiac pacemaker; Z88.0 Allergy status to penicillin; Z88.2 Allergy status to sulfonamides; Z88.5 Allergy status to narcotic agent; Z91.040 Latex allergy status; Z88.8 Allergy status to other drugs, medicaments and biological substances
CPT/HCPCS: 36415; 71046; 84550; 85025; 86140; 99284

== ENCOUNTER → 2019-07-15 | Outpatient (CLI) | payer MEDICARE, BC ==
[~2019-07-15] MED LIST changes: +MELA3TAB4 PO; -MELA3TAB56 PO; +METH4TAB2 PO; +TRAM50TA PO
--- NOTE | 2019-07-15 17:13 | RAD ---
CT scan of the head without contrast 07/15/2019 Clinical History: Severe headaches. Technique: Unenhanced, contiguous, 5 mm axial sections were obtained through the head. One or more of the following individualized dose reduction techniques were utilized for this study: 1. Automated exposure control. 2. Adjustment of the mA and/or kV according to patient size. 3. Use of iterative reconstruction technique. Findings: Comparison study is dated 06/12/2018. There is generalized parenchymal atrophy. Areas of decreased attenuation are seen within the periventricular and subcortical white matter of both cerebral hemispheres consistent with areas of small vessel ischemic disease. No acute parenchymal abnormality is seen. No extra-axial fluid collection is noted. No skull fracture is seen. Impression: No acute intracranial abnormality is seen. Electronically signed by: Jeffrey Estes MD (07/15/2019 5:10 PM) [id number]
== END ==
LOC: CT 16:46
PROVIDERS: ATTEND Family Medicine
DX: R51 Headache (principal)
CPT/HCPCS: 70450

== ENCOUNTER 2021-01-22 19:24 | Observation (INO) | payer MEDICARE, BC ==
[~2021-01-22] VITALS: Ht 167.6 cm; Wt 67.7 kg
[~2021-01-22 19:24] MED LIST changes: +AMLO-186; -AMLO5TAB10
[2021-01-22] MEDS ORDERED: LABETALOL 20 MG/4 ML DISP.SYRIN. IVP ONE (19:45)
[2021-01-22 20:18] LABS: BASO # 0.1 x10^3/uL (0.0-0.2); BASO % 1 % (0-3); EOS # 0.2 x10^3/uL (0.0-0.7); EOS % 2 % (0-3); HEMATOCRIT 38.1 % (36.0-47.0); HEMOGLOBIN 12.6 g/dL (12.0-15.5); LYMPH # 1.1 x10^3/uL (1.0-4.8); LYMPH % 15 % (24-48); MEAN CORPUSCULAR HEMOGLOBIN 31 pg (25-35); MEAN CORPUSCULAR HGB CONC 33 g/dL (31-37); MEAN CORPUSCULAR VOLUME 94 fL (79-100); MONO # 0.7 x10^3/uL (0.0-1.1); MONO % 10 % (0-9); NEUT # 5.5 x10^3uL (1.8-7.7); NEUT % 72 % (31-73); PLATELET COUNT 186 x10^3/uL (140-400); RED BLOOD COUNT 4.07 x10^6/uL (3.50-5.40); RED CELL DISTRIBUTION WIDTH 14.4 % (11.5-14.5); WHITE BLOOD COUNT 7.6 x10^3/uL (4.0-11.0)
[2021-01-22 20:27] LABS: CALCIUM 9.5 mg/dL (8.5-10.1); CREATININE 0.9 mg/dL (0.6-1.0); GFR 59.4; POTASSIUM 3.7 mmol/L (3.5-5.1)
--- NOTE | 2021-01-22 20:36 | RAD ---
CT scan of the head without contrast 01/22/2021 Clinical History: Headache and weakness. Technique: Unenhanced, contiguous, 5 mm axial sections were obtained through the head. One or more of the following individualized dose reduction techniques were utilized for this study: 1. Automated exposure control. 2. Adjustment of the mA and/or kV according to patient size. 3. Use of iterative reconstruction technique. Findings: Comparison study is dated 07/15/2019. There is generalized parenchymal atrophy. Areas of decreased attenuation are seen within the perivent ricular and subcortical white matter of both cerebral hemispheres consistent with areas of small vess el ischemic disease. No acute parenchymal abnormality is seen. No extra-axial fluid collection is not ed. No skull fracture is seen. Impression: No acute intracranial abnormality is seen. Electronically signed by: Jeffrey Estes MD (01/22/2021 8:33 PM) [id number]
[2021-01-22 20:43] LABS: ALBUMIN 3.6 g/dL (3.4-5.0); ALBUMIN/GLOBULIN RATIO 1.1 (1.0-1.7); MAGNESIUM 2.2 mg/dL (1.8-2.4); TOTAL BILIRUBIN 0.4 mg/dL (0.2-1.0)
--- NOTE | 2021-01-22 20:43 | PHYS DOC ---
Past History Past Medical History: Arthritis, Asthma, Bronchitis, CAD, COPD, High Cholesterol, Hypertension, TIA, Other Additional Past Medical Histor: Hard of hearing, chronic back pain Past Surgical History: Appendectomy, Hysterectomy, Knee Replacement, Pacemaker, Tonsillectomy, Other Smoking: Non-smoker Alcohol Use: Occasionally Drug Use: None General Adult EDM: Chief Complaint: HYPERTENSION HPI: HPI: 85-year-old female presents via EMS with report of weakness and headache which started this evening. Patient reports she was seen by her PCP today at approximately 1700 with complaint of low back pain. Patient reportedly received an IM injection of a muscle relaxer. Patient reports she has not received this medication before. Patient does report becoming diaphoretic and nauseated. Damon worthy was with patient when this happened and daughter called Dr. Joya regarding patient's complaint who instructed her to call 911 and have patient present to the ER. Patient complains of significant headache upon arrival to the ER. EMS noted patient's blood pressure to be significantly elevated to "262/114". Patient does report history of hypertension and reports she has been compliant with her medications. Review of Systems: Review of Systems: Constitutional: Denies fever or chills; reports generalized malaise Eyes: Denies redness or eye pain HENT: Denies nasal congestion or sore throat Respiratory: Denies cough or shortness of breath Cardiovascular: Denies chest pain or palpitations GI: Denies abdominal pain or vomiting; reports nausea : Denies dysuria or hematuria Musculoskeletal: Denies back pain or joint pain Integument: Denies rash; reports diaphoresis Neurologic: Reports headache; denies focal weakness or sensory changes Complete systems were reviewed and found to be within normal limits, except as documented in this note. Current Medications: Current Meds: Current Medications Medications (Trade) Dose Ordered Sig/Viviana Start Time Stop Time Status Last Admin Dose Admin Labetalol HCl (Normodyne) 10 mg 1X ONCE 01/22/21 19:45 01/22/21 19:46 DC Allergies: Allergies: Allergies Coded Allergies Type Severity Reaction Last Updated Verified Penicillins Allergy Intermediate Itching 06/13/18 Yes Sulfa (Sulfonamide Antibiotics) Allergy Intermediate Unknown 07/29/14 Yes codeine Allergy Intermediate UNK 07/29/14 Yes diclofenac sodium Allergy Intermediate UNK 07/29/14 Yes latex Allergy Intermediate Rash 12/18/13 Yes Physical Exam: PE: Constitutional: Elderly, appears uncomfortable but non-toxic, hard of hearing HENT: Normocephalic, atraumatic Eyes: PERRL, EOMI, conjunctiva normal, no discharge, no nystagmus Neck: Normal range of motion, no tenderness, supple, no meningeal signs Lungs & Thorax: No respiratory distress, equal chest rise and fall Abdomen: Soft, no tenderness, no guarding/rebound tenderness/distention Skin: Warm, dry, no erythema, no rash Extremities: No tenderness, ROM intact, no edema Neurologic: Alert and oriented X 3, normal motor function, normal sensory function, no focal deficits noted Psychologic: Affect normal, judgment normal Current Patient Data: Labs: Laboratory Tests Test 01/22/21 19:57 White Blood Count 7.6 x10^3/uL (4.0-11.0) Red Blood Count 4.07 x10^6/uL (3.50-5.40) Hemoglobin 12.6 g/dL (12.0-15.5) Hematocrit 38.1 % (36.0-47.0) Mean Corpuscular Volume 94 fL (79-100) Mean Corpuscular Hemoglobin 31 pg (25-35) Mean Corpuscular Hemoglobin Concent 33 g/dL (31-37) Red Cell Distribution Width 14.4 % (11.5-14.5) Platelet Count 186 x10^3/uL (140-400) Neutrophils (%) (Auto) 72 % (31-73) Lymphocytes (%) (Auto) 15 % (24-48) L Monocytes (%) (Auto) 10 % (0-9) H Eosinophils (%) (Auto) 2 % (0-3) Basophils (%) (Auto) 1 % (0-3) Neutrophils # (Auto) 5.5 x10^3uL (1.8-7.7) Lymphocytes # (Auto) 1.1 x10^3/uL (1.0-4.8) Monocytes # (Auto) 0.7 x10^3/uL (0.0-1.1) Eosinophils # (Auto) 0.2 x10^3/uL (0.0-0.7) Basophils # (Auto) 0.1 x10^3/uL (0.0-0.2) Vital Signs: Vital Signs Date Time Temp Pulse Resp B/P (MAP) Pulse Ox O2 Delivery O2 Flow Rate FiO2 01/22/21 20:18 97.9 70 18 187/112 (137) 92 EKG: EKG: @2031 NSR at 66bpm, NO ST elevation, RBBB, t wave inversion V3, QRS 106ms, QT/QTc 448/472ms Radiology/Procedures: Radiology/Procedures: PROCEDURE: CT HEAD WO CONTRAST CT scan of the head without contrast 01/22/2021 Clinical History: Headache and weakness. Technique: Unenhanced, contiguous, 5 mm axial sections were obtained through the head. One or more of the following individualized dose reduction techniques were utilized for this study: 1. Automated exposure control. 2. Adjustment of the mA and/or kV according to patient size. 3. Use of iterative reconstruction technique. Findings: Comparison study is dated 07/15/2019. There is generalized parenchymal atrophy. Areas of decreased attenuation are seen within the periventricular and subcortical white matter of both cerebral hemispheres consistent with areas of small vessel ischemic disease. No acute parenchymal abnormality is seen. No extra-axial fluid collection is noted. No skull fracture is seen. Impression: No acute intracranial abnormality is seen. Electronically signed by: Jeffrey Estes MD (01/22/2021 8:33 PM) [id number] Heart Score: C/O Chest Pain: N/A Course & Med Decision Making: Course & Med Decision Making Pertinent Labs and Imaging studies reviewed. (See chart for details) Patient presents via EMS with report of significant headache with significantly elevated blood pressure. Patient also reportedly was becoming sleepy with nausea and diaphoresis. Patient did receive an IM injection of a muscle relaxer she has not had in the past. Patient is hard of hearing but is otherwise neurologically intact. CT head without acute process. Blood pressure still elevated. Blood pressure addressed. EKG stable. Labs obtained and posted to chart. No signs of end organ damage noted. Patient requiring admission for further evaluation and treatment. Discussed with Dr. Joya (hospitalist) who is in agreement with admission. Discussed findings and plan with patient and daughter, who acknowledge understanding and agreement. Darioon Disclaimer: Chikis Disclaimer: This electronic medical record was generated, in whole or in part, using a voice recognition dictation system. Departure Departure: Impression: Primary Impression: Hypertensive urgency Additional Impression: Headache Qualified Codes: R51.9 - Headache, unspecified Disposition: ADMITTED INPATIENT Admitting Physician: Vito Joya Condition: STABLE Referrals: VITO JOYA MD (PCP) Critical Care Time Critical care time was 30 minutes which includes time at bedside, spent in discussion of patient's care with specialists and/or family members, with interpretation of laboratory and/or radiological studies and is exclusive of procedures. PAULINO MCCARTHY DO Jan 22, 2021 20:43
--- NOTE | 2021-01-22 21:27 | EKG ---
[address] [address] Test Date: 2021-01-22 Test Time: 20:32:01 Pat Name: ADDY RUTH Department: Room: Gender: F Thoracic Surgeon: : 1935 Requested By: PAULINO MCCARTHY Order Number: [id number] Reading MD: Andrei Snow MD Measurements Intervals [place] Rate: 66 P: 47 LA: 198 QRS: 246 QRSD: 106 T: 25 QT: 448 QTc: 472 Interpretive Statements SINUS RHYTHM RBBB LPFB Electronically Signed On 01-28-2021 11:49:49 CDT by Andrei Snow MD
[2021-01-22] MEDS ORDERED: ONDANSETRON PF 4 MG/2 ML VIAL. IVP PRN (22:15)
[2021-01-22] MEDS ORDERED: hydrALAZINE 20 MG/ML VIAL. IV PRN (22:15)
[2021-01-22] MEDS ORDERED: ACETAMINOPHEN 325 MG TABLET PO PRN (22:15)
[2021-01-22] MEDS ORDERED: hydrALAZINE 20 MG/ML VIAL. IV ONE (22:30)
[2021-01-22] MEDS ORDERED: ASPIRIN ENTERIC COATED 325 MG TABLET.DR. PO ONE (22:30)
[2021-01-22] MEDS ORDERED: LORazepam 0.5 MG TABLET PO ONE (23:30)
--- NOTE | 2021-01-23 | NUR ---
ADMISSION: The patient, ADDY RUTH, 85 y/o, F admitted by VITO JOYA MD, was given written information regarding hospital policies, unit procedures and contact persons. Pt arrived to room 113 via gurney, accompanied by [facility] and ED staff. Dx: Hypertensive urgency, headache. Pt reports she was seen by her PCP this evening and received an IM injection of a muscle relaxer in her lower back to relieve chronic pain. Pt has not received this med before, developed weakness and headache. Pt's daughter brought her to the ED for treatment. Pt is A/Ox3, however highly [place]. Bilateral hearing aids were sent home from ED with her daughter as they needed to be charged. Pt unsure of home meds. Daughter Nancy called to check on pt, update given. Dtr is to come in AM to drop off med list and some belongings. Pt placed on telemetry, showing SR with BBB and occasionally A-paced. Pt received hydralazine 10mg IVP prior to transport and BP has markedly improved to 121/73. POC discussed, pt and dtr V/U. Call light in reach. Bed alarmed for safety. Valuables were checked and logged. Left in room with pt.
[2021-01-23 00:01] VITALS: BP 121/73
[2021-01-23 05:32] VITALS: BP 105/60
[2021-01-23] MEDS ORDERED: FLUOCINONIDE TOP PRN (08:30)
[2021-01-23] MEDS ORDERED: NON FORMULARY ITEM (Methylprednisolone (Medrol) 1 PKG) PO SCH (08:30)
[2021-01-23] MEDS ORDERED: ACETAMINOPHEN 325 MG TABLET PO PRN (08:30)
[2021-01-23] MEDS ORDERED: HYDROcodone/APAP 7.5/325MG 1 TAB TABLET PO PRN ×2 (08:30→16:00)
[2021-01-23] MEDS ORDERED: hydrOXYzine PAMOATE 25 MG CAPSULE PO PRN (08:30)
[2021-01-23] MEDS ORDERED: GUAR GUM PO PRN (08:30)
[2021-01-23] MEDS ORDERED: traMADol 50 MG TABLET PO PRN (08:30)
[2021-01-23] MEDS ORDERED: NON FORMULARY ITEM (Arformoterol Tartrate (Brovana) 15 MCG) IH SCH (09:00)
[2021-01-23] MEDS ORDERED: CITALOPRAM 10 MG TABLET. PO SCH (09:00)
[2021-01-23] MEDS ORDERED: amLODIPine BESYLATE 5 MG TABLET PO SCH (09:00)
[2021-01-23] MEDS ORDERED: NON FORMULARY ITEM (Multivitamin (Multi Vitamin Daily) 1 EACH) PO SCH (09:00)
[2021-01-23] MEDS ORDERED: hydroCHLOROthiazide 12.5 MG CAPSULE PO SCH (09:00)
[2021-01-23] MEDS ORDERED: POLYETHYLENE GLYCOL 3350 17 GM PACKET. PO SCH (09:00)
[2021-01-23] MEDS ORDERED: AZITHROMYCIN 250 MG TABLET. PO SCH (09:00)
[2021-01-23] MEDS ORDERED: clonazePAM 0.5 MG TABLET PO SCH (09:00)
[2021-01-23] MEDS ORDERED: predniSONE 10 MG TABLET. PO SCH (09:00)
--- NOTE | 2021-01-23 09:37 | NUR ---
This RN is holding the patients home meds at this time till list is verified with daughter.
[2021-01-23 11:08] VITALS: BP 130/75
[2021-01-23] MEDS ORDERED: IPRATRPIUM/ALBUTEROL 0.5/2.5MG 3 ML NEBU. ONE (11:09)
[2021-01-23] MEDS: IPRATRPIUM/ALBUTEROL 0.5/2.5MG 3 ML NEBU. NEB SCH ×2 (11:10→11:22)
[2021-01-23] MEDS ORDERED: FAMO40TA4 PO (11:16)
[2021-01-23] MEDS ORDERED: CALC-68 PO (11:16)
[2021-01-23] MEDS ORDERED: OMEP40CA7 PO (11:16)
[2021-01-23] MEDS ORDERED: BUPR150T8 PO (11:16)
[2021-01-23] MEDS ORDERED: METO-239 PO (11:30)
[2021-01-23] MEDS ORDERED: LORA0.5T21 PO ×2 (12:38→13:22)
--- NOTE | 2021-01-23 15:21 | NUR ---
Discharge Note: ADDY RUTH Discharge instructions and discharge home medications reviewed with Patient and a copy given. All questions have been answered and understanding verbalized. The following instructions and handouts were given: ATIVAN Patient discharged to HOME.
--- NOTE | 2021-01-23 15:59 | RAD ---
EXAM: Lumbar spine CT without contrast. HISTORY: Pain. TECHNIQUE: Computed tomographic images of the lumbar spine were obtained without contrast. Multiplana r reformatting was performed. *One or more of the following individualized dose reduction techniques were utilized for this examina tion: 1. Automated exposure control. 2. Adjustment of the mA and/or kV according to patient size. 3. Use of iterative reconstruction technique. COMPARISON: None. FINDINGS: There is S-shaped lumbar scoliosis, with dextrocurvature centered at L2-L3 and levocurvatur e centered at L4-L5. Lumbar hyperlordosis. There is a 6 mm grade 1 anterolisthesis of L4 and L5, 3 mm grade 1 anterolisthesis of L5 on S1 and 2 mm retrolisthesis of L2 on L3. There is multilevel degenerative endplate remodeling with disc space narrowing, osteophytosis and Viviana morl's node formation. This predominantly along the left aspects of L2-L3 and L3-L4 and right aspects of L4-L5 and L5-S1. This corresponds with the levels of maximum sclerotic concavity. There is bone d emineralization. Evaluation of the lower thorax demonstrates linear atelectasis or scarring within the bilateral lower lobes. There is cardiomegaly and a cardiac pacemaker. There is hepatomegaly. There are multiple hepa tic and splenic granulomas. There is evidence of partial bowel resection, with an enterocolic anastom osis within the right midabdomen. There is aortobiiliac atherosclerosis. There is no lymphadenopathy. There are are a few benign bone islands and osseous hemangiomas. At L1-L2, there is a disc bulge and endplate remodeling. There is mild bilateral facet arthropathy. T here is no stenosis. At L2-L3, there is a left lateral recess to extra foraminal disc protrusion superimposed on a disc bu lge and left lateral predominant endplate remodeling. There is mild right and moderate left facet art hropathy. There is moderate left foraminal stenosis. There is mild central canal stenosis. At L3-L4, there is a left lateral recess to extra foraminal disc protrusion superimposed on a left la teral predominant disc bulge and endplate remodeling. There is moderate right and severe left facet a rthropathy. There is hypertrophy of the ligamentum flavum. There is mild right and severe left forami nal stenosis. There is moderate central canal stenosis. At L4-L5, there is a right lateral predominant disc bulge and endplate remodeling. There is severe ri ght greater than left facet arthropathy. There is grade 1 anterolisthesis. There is severe right fora josette stenosis. There is severe central canal stenosis. At L5-S1, there is a right foraminal to lateral disc protrusion superimposed on a disc bulge and endp late remodeling. There is severe right and moderate left facet arthropathy. There is grade 1 anteroli sthesis. There is moderate to severe right foraminal stenosis. IMPRESSION: 1. Multilevel degenerative change involving the lumbar spine, described in detail above. This results in stenosis at multiple levels. The central canal stenosis most significant at L4-L5, the right fora josette stenosis is most significant at L4-L5 and L5-S1, and the left foraminal stenosis is most signif icant at L3-L4. 2. Lumbar scoliosis and multilevel listhesis, described above. 3. Bone demineralization. Electronically signed by: Addis Morrison MD (01/23/2021 3:56 PM) [facility]
[2021-01-23] MEDS ORDERED: COPPER PO SCH ×2 (17:00)
[2021-01-23] MEDS ORDERED: VIT E PO SCH ×2 (17:00)
[2021-01-23] MEDS ORDERED: VIT C PO SCH ×2 (17:00)
[2021-01-23] MEDS ORDERED: ZINC PO SCH ×2 (17:00)
[2021-01-23] MEDS ORDERED: VIT A PO SCH ×2 (17:00)
[2021-01-23] MEDS ORDERED: ZOLPIDEM 5 MG TABLET. PO SCH (21:00)
[2021-01-23] MEDS ORDERED: ATORVASTATIN CALCIUM 20 MG TABLET PO SCH (21:00)
[2021-01-23] MEDS ORDERED: NON FORMULARY ITEM (Famotidine 1 TAB) PO SCH (21:00)
[2021-01-23] MEDS ORDERED: LORazepam 0.5 MG TABLET PO SCH (21:00)
[2021-01-24] MEDS ORDERED: METOPROLOL SUCC 24HR ER 25 MG TAB.ER.24H. PO SCH (09:00)
[2021-01-24] MEDS ORDERED: NON FORMULARY ITEM (Omeprazole 1 CAP) PO SCH (09:00)
[2021-01-24] MEDS ORDERED: buPROPion SR 150 MG TABLET.SA PO SCH (09:00)
[2021-01-24] MEDS ORDERED: CALCIUM CITRATE PO SCH (09:00)
[2021-01-24] MEDS ORDERED: ASPIRIN CHEWABLE 81 MG TABLET. PO SCH (09:00)
[2021-01-24] MEDS ORDERED: VITAMIN D3 PO SCH (09:00)
== END 2021-01-23 14:50 | disposition home or self-care (01) ==
LOC: ER 19:24 → INTOOBSV 22:19 → 1 SOUTH 22:19
PROVIDERS: ADMIT Family Medicine; ATTEND Family Medicine
DX: I16.0 Hypertensive urgency (principal); Z20.822 Contact with and (suspected) exposure to COVID-19; R51.9 Headache, unspecified; M19.90 Unspecified osteoarthritis, unspecified site; J44.9 Chronic obstructive pulmonary disease, unspecified; I10 Essential (primary) hypertension; I25.10 Atherosclerotic heart disease of native coronary artery without angina pectoris; H91.90 Unspecified hearing loss, unspecified ear; E78.00 Pure hypercholesterolemia, unspecified; Z86.73 Personal history of transient ischemic attack (TIA), and cerebral infarction without residual deficits; Z90.49 Acquired absence of other specified parts of digestive tract; Z90.710 Acquired absence of both cervix and uterus; Z96.659 Presence of unspecified artificial knee joint
CPT/HCPCS: 36415; 70450; 72131; 80053; 82553; 83735; 84484; 85025; 85651; 93005; 94640; 96374; 99291; G0378; J0360; U0003; G0379

== ENCOUNTER 2021-05-21 19:48 | Emergency (ER) | payer MEDICARE, BC ==
[~2021-05-21] VITALS: Ht 167.6 cm; Wt 67.7 kg
[~2021-05-21 19:48] MED LIST changes: -BENA20TA4 PO; +BENA20TA84 PO; +BUPR150T8 PO; +CALC-68 PO; +FAMO40TA4 PO; +LORA0.5T21 PO; +METO-239 PO; +OMEP40CA7 PO
--- NOTE | 2021-05-21 19:53 | PHYS DOC ---
Past History Past Medical History: Arthritis, Asthma, Bronchitis, CAD, Constipation, COPD, GERD, High Cholesterol, Hypertension, TIA, Other Additional Past Medical Histor: Hard of hearing, chronic back pain Past Surgical History: Appendectomy, Hysterectomy, Knee Replacement, Pacemaker, Tonsillectomy, Other Smoking: Non-smoker Alcohol Use: Occasionally Drug Use: None General Adult HPI: HPI: Dr. Joya sent me over to get check out for blood clotts.. and get a US on my Lt. leg.. ".. " I ve never had a blood clot or PE.,,., they always check for them.. because my D-dimer is always high.. but when I take clot meds..,.. I have bleeding problems.. I even bleed when I take 2 aspirin a day... So I us ually only just take 1.. Patient is a 85 year old female who presents with above hx with complaints left leg edema and foot pain. Patient seen in Dr. Joya's office. Referred back to the emergency department for evaluation of DVTs and pulmonary embolism. Patient has in the past has had high D-dimers. Patient has had recent injury to left foot and ankle requiring use of orthopedic boot. Patient not currently wearing orthopedic compliance because of increased pain and edema. Patient is following with Ortho Dr. Maritza Duffy.Pt. follow s with Cardiology at [facility]. . Pt. follows with Dr Joya as primary.. Patient recently injured left foot and ankle approximately 3 weeks ago. Has seen orthopedics and does have follow-up appointment. Patient has significant past medical history for arthritis, asthma, bronchitis, coronary artery disease, COPD, elevated cholesterol, hypertension, TIAs, hearing loss, chronic back pain, and deconditioning. Patient is accompanied with her daughter Review of Systems: Review of Systems: Constitutional: Denies fever or chills Eyes: Denies change in visual acuity HENT: Denies nasal congestion or sore throat Respiratory: Complains of shortness of breath Cardiovascular: Denies chest pain or edema GI: Denies abdominal pain, nausea, vomiting, bloody stools or diarrhea : Denies dysuria Musculoskeletal: Complains of left lower leg pain and edema Integument: Denies rash Neurologic: Denies headache, focal weakness or sensory changes Endocrine: Denies polyuria or polydipsia Lymphatic: Denies swollen glands Psychiatric: Denies depression or anxiety Family History: Family History: Noncontributory to presentation Current Medications: Current Meds: See nursing for home meds Allergies: Allergies: Allergies Coded Allergies Type Severity Reaction Last Updated Verified Penicillins Allergy Intermediate Itching 06/13/18 Yes Sulfa (Sulfonamide Antibiotics) Allergy Intermediate Unknown 07/29/14 Yes codeine Allergy Intermediate UNK 07/29/14 Yes diclofenac sodium Allergy Intermediate UNK 07/29/14 Yes latex Allergy Intermediate Rash 12/18/13 Yes Physical Exam: PE: Constitutional: , no acute distress, non-toxic appearance. [] HENT: Normocephalic, atraumatic, bilateral external ears normal, oropharynx moist, no oral exudates, nose normal. [] Eyes: PERRLA, EOMI, conjunctiva normal, no discharge. Glasses Neck: Normal range of motion, no tenderness, supple, no stridor. Kyphosis Cardiovascular:Heart rate regular rhythm, aortic murmur []. PMI to the left Lungs & Thorax: Bilateral breath sounds equal apex with few basilar crackles on auscultation [] Abdomen: Bowel sounds normal, soft, no tenderness, no masses, no pulsatile masses. Scar Skin: Warm, dry, no erythema, no rash. Poor turgor. Senile keratosis Back: No tenderness, no CVA tenderness. Kyphosis and scoliosis Extremities: Joint tenderness, no cyanosis, no clubbing, moves extremities on request,, left foot and ankle edema. Large long bilateral knee scars Neurologic: Alert and oriented X 3, n moves extremities on request, has distal sensory, no focal deficits noted. [] Psychologic: Affect anxious, judgement normal, mood normal. [] EKG: EKG: My interpretation of EKG shows a sinus rhythm at 74 bpm. There is an right interventricular block. Right ventricular hypertrophic changes. No findings acute STEMI of contralateral changes. Time EKG is 2110 hrs. [] Radiology/Procedures: Radiology/Procedures: [address] [address] IMAGING REPORT Signed PATIENT: ADDY RUTH ACCOUNT: [id number] : 1935 LOCATION: ER AGE: 85 SEX: F EXAM STATUS: REG ER ORD. PHYSICIAN: YUSEF RODRIGUEZ MD REASON: dyspnea, extremity swelling, elev. D-dimer OMNI 350 75CC PROCEDURE: CT ANGIOGRAPHY CHEST CTA Chest with contrast: Clinical History: Reason: dyspnea, extremity swelling, elev. D-dimer Axial helical images of the chest were obtained after the administration of 75 cc of IV Optiray 300 and timed appropriately for a pulmonary arterial study. Conventional axial reconstruction was performed in addition to coronal, sagittal and bilateral oblique MIP (maximum intensity projection). This study was ordered to detect possible pulmonary embolism. COMPARISON: June 11, 2009 FINDINGS: There are no filling defects to suggest pulmonary embolism. Linear opacities in the lung bases were seen previously and are likely chronic. There is no mediastinal or hilar lymphadenopathy. The thoracic aorta appears normal. There are multiple old thoracic vertebral compression fractures and resultant kyphosis of the thoracic spine seen previously and unchanged. Impression: 1. No evidence of pulmonary embolism. 2. No significant findings. End of impression PQRS Compliance Statement: One or more of the following individualized dose reduction techniques were utilized for this examination: 1. Automated exposure control 2. Adjustment of the mA and/or kV according to patient size 3. Use of iterative reconstruction technique Electronically signed by: Cas Hurley III, MD (05/21/2021 11:33 PM) [facility] DICTATED AND SIGNED BY: CAS HURLEY III, MD DATE: 05/21/212327 CC: VITO JOYA MD; YUSEF RODRIGUEZ MD ~MTH0 [address] [facility] [place], [place] [id number] IMAGING REPORT Signed PATIENT: ADDY RUTH ACCOUNT: [id number] : 1935 LOCATION: ER AGE: 85 SEX: F EXAM STATUS: REG ER ORD. PHYSICIAN: YUSEF RODRIGUEZ MD REASON: fall, WEAKNESS PROCEDURE: PORTABLE CHEST 1V Exam: Chest one view INDICATION: Fall, weakness TECHNIQUE: Frontal view of the chest Comparisons: 06/04/2019 FINDINGS: Pacer with leads terminating the right heart. Heart is mildly enlarged. Pulmonary vessels are within normal limits. The lung and pleural spaces are clear. IMPRESSION: No acute pulmonary process. Electronically signed by: Muriel Escalona MD (05/21/2021 10:21 PM) [facility] DICTATED AND SIGNED BY: MURIEL ESCALONA MD DATE: 05/21/212218 CC: VITO JOYA MD; YUSEF RODRIGUEZ MD ~MTH0 [address] [facility] [address] [place] [id number] [place] [address] [place] [id number] IMAGING REPORT Signed PATIENT: ADDY RUTH ACCOUNT: [id number] : 1935 LOCATION: ER AGE: 85 SEX: F EXAM STATUS: REG ER ORD. PHYSICIAN: YUSEF RODRIGUEZ MD REASON: FALL, LEFT ANKLE AND FOOT PAIN AND SWELLING PROCEDURE: FOOT LEFT 3V Exam: Left ankle 3 views. Left foot 3 views INDICATION: Fall, left ankle and foot pain TECHNIQUE: Frontal, lateral and oblique views of the left ankle and left foot Comparisons: None FINDINGS: Ankle: Diffuse osteopenia. Bone mineralization is normal. Soft tissues are unremarkable. Joint spaces are well-maintained. Foot: Bone mineralization is normal. No acute or healed fractures. Soft tissues are unremarkable. Joint spaces are well-maintained. IMPRESSION: No acute osseous abnormality of the left ankle or left foot. Electronically signed by: Muriel Escalona MD (05/21/2021 10:18 PM) [facility] DICTATED AND SIGNED BY: MURIEL ESCALONA MD DATE: 05/21/212214 CC: VITO JOYA MD; YUSEF RODRIGUEZ MD ~MTH0 IMAGING REPORT Signed PATIENT: DADY RUTH ACCOUNT: [id number] : 1935 LOCATION: ER AGE: 85 SEX: F EXAM STATUS: REG ER ORD. PHYSICIAN: YUSEF RODRIGUEZ MD REASON: edema, hx injury, hx elev. D-dimer, request by Devin PROCEDURE: VENOUS LOWER EXTREMITY LEFT Exam: Left lower extremity venous duplex study INDICATION: Leg swelling TECHNIQUE: Using a combination of real-time ultrasound imaging and color-flow and pulse Doppler imaging techniques along with graded compression and augmentation, duplex evaluation of the deep venous systems of leftlower extremity was performed. Multiple images were obtained. Findings: There is no sonographic evidence for deep venous thrombosis involving the visualized deep venous structures of the left lower extremity. IMPRESSION: No acute DVT in the left lower extremities. Electronically signed by: Muriel Escalona MD (05/21/2021 9:59 PM) [facility] DICTATED AND SIGNED BY: MURIEL ESCALONA MD DATE: 05/21/212158 CC: VITO JOYA MD; YUSEF RODRIGUEZ MD ~MTH0 0 Heart Score: C/O Chest Pain: No HEART Score for Chest Pain: HEART Score for Chest Pain Response (Comments) Value History Moderately Suspicious 1 ECG Nonspecific Repolarizatio 1 Age > 65 2 Risk Factors 1 or 2 Risk Factors 1 Troponin < Normal Limit 0 Total 5 Risk Factors: Risk Factors: DM, Current or recent (<one month) smoker, HTN, HLP, family history of CAD, obesity. Risk Scores: Score 0 - 3: 2.5% MACE over next 6 weeks - Discharge Home Score 4 - 6: 20.3% MACE over next 6 weeks - Admit for Clinical Observation Score 7 - 10: 72.7% MACE over next 6 weeks - Early Invasive Strategies Course & Med Decision Making: Course & Med Decision Making Pertinent Labs and Imaging studies reviewed. (See chart for details) Since no obvious DVT on left leg or findings of a significant pulmonary embolism -will not start anticoagulation./. In the past patient has had problems of bleeding with anticoagulation. Risk and benefits discussed with patient. Patient has elected to discuss this with Dr. Joya and cardiology. Patient is to continue her aspirin as previously directed. Return if any concerns. Patient keep follow-up with [facility]. [phone]. Patient to use walker or chair. Impression: 1. Osteoarthritis 2. Osteoporosis 3. Left ankle and foot injury-3 weeks ago-Inverted 4. Mild elevation in BNP= 867 5. Elevated D-dimer 3.16 6. Renal insufficiency BUN 26 creatinine 1.1 [] Chikis Disclaimer: Chikis Disclaimer: This electronic medical record was generated, in whole or in part, using a voice recognition dictation system. Departure Departure: Referrals: VITO JOYA MD (PCP) Chikis Disclaimer This chart was dictated in whole or in part using Voice Recognition software in a busy, high-work load, and often noisy Emergency Department environment. It may contain unintended and wholly unrecognized errors or omissions. Dragon Disclaimer This chart was dictated in whole or in part using Voice Recognition software in a busy, high-work load, and often noisy Emergency Department environment. It may contain unintended and wholly unrecognized errors or omissions. YUSEF RODRIGUEZ MD May 21, 2021 19:53
[2021-05-21 21:17] LABS: BASO # 0.1 x10^3/uL (0.0-0.2); BASO % 1 % (0-3); EOS # 0.5 x10^3/uL (0.0-0.7); EOS % 7 % (0-3); HEMATOCRIT 40.7 % (36.0-47.0); HEMOGLOBIN 13.5 g/dL (12.0-15.5); LYMPH # 1.4 x10^3/uL (1.0-4.8); LYMPH % 17 % (24-48); MEAN CORPUSCULAR HEMOGLOBIN 31 pg (25-35); MEAN CORPUSCULAR HGB CONC 33 g/dL (31-37); MEAN CORPUSCULAR VOLUME 94 fL (79-100); MONO % 12 % (0-9); NEUT % 63 % (31-73); PLATELET COUNT 233 x10^3/uL (140-400); RED BLOOD COUNT 4.35 x10^6/uL (3.50-5.40); RED CELL DISTRIBUTION WIDTH 15.1 % (11.5-14.5); WHITE BLOOD COUNT 7.9 x10^3/uL (4.0-11.0)
[2021-05-21 21:23] LABS: CALCIUM 9.6 mg/dL (8.5-10.1); CREATININE 1.1 mg/dL (0.6-1.0); GFR 47.1; POTASSIUM 3.9 mmol/L (3.5-5.1)
--- NOTE | 2021-05-21 22:01 | RAD ---
Exam: Left lower extremity venous duplex study INDICATION: Leg swelling TECHNIQUE: Using a combination of real-time ultrasound imaging and color-flow and pulse Doppler imagi ng techniques along with graded compression and augmentation, duplex evaluation of the deep venous sy stems of leftlower extremity was performed. Multiple images were obtained. Findings: There is no sonographic evidence for deep venous thrombosis involving the visualized deep venous stru ctures of the left lower extremity. IMPRESSION: No acute DVT in the left lower extremities. Electronically signed by: Muriel Rivas MD (05/21/2021 9:59 PM) [facility]
--- NOTE | 2021-05-21 22:21 | RAD ---
Exam: Left ankle 3 views. Left foot 3 views INDICATION: Fall, left ankle and foot pain TECHNIQUE: Frontal, lateral and oblique views of the left ankle and left foot Comparisons: None FINDINGS: Ankle: Diffuse osteopenia. Bone mineralization is normal. Soft tissues are unremarkable. Joint spaces are we ll-maintained. Foot: Bone mineralization is normal. No acute or healed fractures. Soft tissues are unremarkable. Joint spa cintia are well-maintained. IMPRESSION: No acute osseous abnormality of the left ankle or left foot. Electronically signed by: Muriel Rivas MD (05/21/2021 10:18 PM) [facility]
--- NOTE | 2021-05-21 22:24 | RAD ---
Exam: Chest one view INDICATION: Fall, weakness TECHNIQUE: Frontal view of the chest Comparisons: 06/04/2019 FINDINGS: Pacer with leads terminating the right heart. Heart is mildly enlarged. Pulmonary vessels are within normal limits. The lung and pleural spaces are clear. IMPRESSION: No acute pulmonary process. Electronically signed by: Muriel Rivas MD (05/21/2021 10:21 PM) [facility]
[2021-05-21] MEDS ORDERED: CONTRAST GIVEN. MC PRN (22:30)
[2021-05-21] MEDS ORDERED: IOHEXOL 350 MG/ML 100 ML VIAL. IV ONE (22:30)
--- NOTE | 2021-05-21 23:36 | RAD ---
CTA Chest with contrast: Clinical History: Reason: dyspnea, extremity swelling, elev. D-dimer Axial helical images of the chest were obtained after the administration of 75 cc of IV Optiray 300 a nd timed appropriately for a pulmonary arterial study. Conventional axial reconstruction was perform ed in addition to coronal, sagittal and bilateral oblique MIP (maximum intensity projection). This s tudy was ordered to detect possible pulmonary embolism. COMPARISON: June 11, 2009 FINDINGS: There are no filling defects to suggest pulmonary embolism. Linear opacities in the lung bases were seen previously and are likely chronic. There is no mediastinal or hilar lymphadenopathy. The thoracic aorta appears normal. 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 Impression: 1. No evidence of pulmonary embolism. 2. No significant findings. End of impression PQRS Compliance Statement: One or more of the following individualized dose reduction techniques were utilized for this examinat ion: 1. Automated exposure control 2. Adjustment of the mA and/or kV according to patient size 3. Use of iterative reconstruction technique Electronically signed by: Lee Joyner III, MD (05/21/2021 11:33 PM) [facility]
[2021-05-22 00:25] VITALS: BP 148/71
--- NOTE | 2021-05-22 04:19 | EKG ---
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
== END 2021-05-22 00:25 | disposition home or self-care (01) ==
LOC: ER 19:48
DX: S99.912A Unspecified injury of left ankle, initial encounter (principal); S99.922A Unspecified injury of left foot, initial encounter; M81.0 Age-related osteoporosis without current pathological fracture; R79.89 Other specified abnormal findings of blood chemistry; R79.1 Abnormal coagulation profile; N28.9 Disorder of kidney and ureter, unspecified; J44.9 Chronic obstructive pulmonary disease, unspecified; I10 Essential (primary) hypertension; G89.29 Other chronic pain; I25.10 Atherosclerotic heart disease of native coronary artery without angina pectoris; K21.9 Gastro-esophageal reflux disease without esophagitis; E78.00 Pure hypercholesterolemia, unspecified; Z86.73 Personal history of transient ischemic attack (TIA), and cerebral infarction without residual deficits; Z88.0 Allergy status to penicillin; Z88.2 Allergy status to sulfonamides; Z88.5 Allergy status to narcotic agent; Z91.040 Latex allergy status; Z88.8 Allergy status to other drugs, medicaments and biological substances; X58.XXXA Exposure to other specified factors, initial encounter; Y93.89 Activity, other specified; Y92.89 Other specified places as the place of occurrence of the external cause; Y99.8 Other external cause status
CPT/HCPCS: 36415; 71045; 71275; 73610; 73630; 80048; 83880; 84484; 85025; 85379; 85610; 85730; 93005; 93971; 99285; Q9967